=== PATIENT | male | born 1950 | race Caucasian/White ===

== ENCOUNTER 2016-08-24 10:24 | Outpatient (CLI) | payer MEDICARE, OTHER | END 2016-08-24 10:25 | disposition home or self-care (01) | DX: R55 Syncope and collapse (principal) ==

== ENCOUNTER 2017-08-10 11:09 | Outpatient (CLI) | payer MEDICARE, OTHER | END 2017-08-10 11:10 | disposition home or self-care (01) | LOC: LAB.F 11:09 | PROVIDERS: ATTEND Internal Medicine Cardiovascular Disease | DX: I48.0 Paroxysmal atrial fibrillation (principal) | CPT/HCPCS: 85610 ==

== ENCOUNTER 2017-08-15 09:24 | Outpatient (CLI) | payer MEDICARE, OTHER | END 2017-08-15 09:25 | disposition home or self-care (01) | LOC: LAB.F 09:24 | PROVIDERS: ATTEND Internal Medicine Cardiovascular Disease | DX: I48.0 Paroxysmal atrial fibrillation (principal) | CPT/HCPCS: 85610 ==

== ENCOUNTER 2017-08-21 10:19 | Outpatient (CLI) | payer MEDICARE, OTHER | END 2017-08-21 10:20 | disposition home or self-care (01) | LOC: LAB.F 10:19 | PROVIDERS: ATTEND Internal Medicine Cardiovascular Disease | DX: I48.0 Paroxysmal atrial fibrillation (principal) | CPT/HCPCS: 85610 ==

== ENCOUNTER 2017-08-27 09:17 | Outpatient (CLI) | payer MEDICARE, OTHER | END 2017-08-27 09:18 | disposition home or self-care (01) | LOC: LAB.F 09:17 | PROVIDERS: ATTEND Internal Medicine Cardiovascular Disease | DX: I48.0 Paroxysmal atrial fibrillation (principal) | CPT/HCPCS: 85610 ==

== ENCOUNTER 2017-09-03 09:19 | Outpatient (CLI) | payer MEDICARE, OTHER | END 2017-09-03 09:20 | disposition home or self-care (01) | LOC: LAB.F 09:19 | PROVIDERS: ATTEND Internal Medicine Cardiovascular Disease | DX: I48.0 Paroxysmal atrial fibrillation (principal) | CPT/HCPCS: 85610 ==

== ENCOUNTER 2017-09-17 09:36 | Outpatient (CLI) | payer MEDICARE, OTHER | END 2017-09-17 09:37 | disposition home or self-care (01) | LOC: LAB.F 09:36 | PROVIDERS: ATTEND Internal Medicine Cardiovascular Disease | DX: I48.0 Paroxysmal atrial fibrillation (principal) | CPT/HCPCS: 85610 ==

== ENCOUNTER 2017-10-01 09:09 | Outpatient (CLI) | payer MEDICARE, OTHER | END 2017-10-01 09:10 | disposition home or self-care (01) | LOC: LAB.F 09:09 | PROVIDERS: ATTEND Internal Medicine Cardiovascular Disease | DX: I48.0 Paroxysmal atrial fibrillation (principal) | CPT/HCPCS: 85610 ==

== ENCOUNTER 2017-10-15 09:15 | Outpatient (CLI) | payer MEDICARE, OTHER | END 2017-10-15 09:16 | disposition home or self-care (01) | LOC: LAB.F 09:15 | PROVIDERS: ATTEND Internal Medicine Cardiovascular Disease | DX: I48.0 Paroxysmal atrial fibrillation (principal) | CPT/HCPCS: 85610 ==

== ENCOUNTER 2017-11-12 10:18 | Outpatient (CLI) | payer MEDICARE, OTHER | END 2017-11-12 10:19 | disposition home or self-care (01) | LOC: LAB.F 10:18 | PROVIDERS: ATTEND Internal Medicine Cardiovascular Disease | DX: I48.0 Paroxysmal atrial fibrillation (principal) | CPT/HCPCS: 85610 ==

== ENCOUNTER 2017-11-19 09:13 | Outpatient (CLI) | payer MEDICARE, OTHER | END 2017-11-19 09:14 | disposition home or self-care (01) | LOC: LAB.F 09:13 | PROVIDERS: ATTEND Internal Medicine Cardiovascular Disease | DX: I48.0 Paroxysmal atrial fibrillation (principal) | CPT/HCPCS: 85610 ==

== ENCOUNTER 2017-12-10 09:55 | Outpatient (CLI) | payer MEDICARE, OTHER | END 2017-12-10 09:56 | disposition home or self-care (01) | LOC: LAB.F 09:55 | PROVIDERS: ATTEND Internal Medicine Cardiovascular Disease | DX: I48.0 Paroxysmal atrial fibrillation (principal) | CPT/HCPCS: 85610 ==

== ENCOUNTER 2018-01-08 12:50 | Outpatient (CLI) | payer MEDICARE, OTHER | END 2018-01-08 12:51 | disposition home or self-care (01) | LOC: LAB.F 12:50 | PROVIDERS: ATTEND Internal Medicine Cardiovascular Disease | DX: I48.0 Paroxysmal atrial fibrillation (principal) | CPT/HCPCS: 85610 ==

== ENCOUNTER 2018-01-30 11:03 | Outpatient (CLI) | payer MEDICARE, OTHER | END 2018-01-30 11:04 | disposition home or self-care (01) | LOC: LAB.F 11:03 | PROVIDERS: ATTEND Internal Medicine Cardiovascular Disease | DX: I48.0 Paroxysmal atrial fibrillation (principal) | CPT/HCPCS: 85610 ==

== ENCOUNTER 2018-02-19 08:37 | Outpatient (CLI) | payer MEDICARE, OTHER | END 2018-02-19 08:38 | disposition home or self-care (01) | LOC: LAB.F 08:37 | PROVIDERS: ATTEND Internal Medicine Cardiovascular Disease | DX: I48.0 Paroxysmal atrial fibrillation (principal) | CPT/HCPCS: 85610 ==

== ENCOUNTER 2018-03-09 01:56 | Outpatient (CLI) | payer MEDICARE, OTHER | END 2018-03-09 01:57 | disposition critical access hospital (66) | LOC: EMS 01:56 | PROVIDERS: ATTEND Surgery | DX: R46.4 Slowness and poor responsiveness (principal); R61 Generalized hyperhidrosis | CPT/HCPCS: A0425; A0427 ==

== ENCOUNTER 2018-03-09 02:28 | Emergency (ER) | payer MEDICARE, OTHER ==
[2018-03-09] MEDS ORDERED: SODIUM CHLORIDE 0.9% 1,000 ML IV ONE (02:30)
--- NOTE | 2018-03-09 02:47 | ED Physician Documentation ---
PD HPI ALTERED MENTAL STATUS - Stated complaint Stated Complaint: DEC LOC - Chief complaint Chief Complaint: Neuro - History obtained from History obtained from: Patient, EMS - History of Present Illness Timing - onset: Today Timing - duration: Hours (1) Quality / character: Less responsive Associated symptoms: Syncope (possible syncope). No: Fever, Headache, Stiff neck, Dyspnea, Cough, NVD, Urinary sx, General weakness, Focal weakness, Seizure activity Basline status: Alert and oriented X 3 Recently seen: Not recently seen - Additional information Additional information: patient has been drinking alcohol and using marijuana tonight. Family states became altered just before EMS arrived. Review of Systems Unable to obtain: Intoxicated Ten Systems: 10 systems reviewed and negative Constitutional: denies: Fever, Chills Nose: denies: Rhinorrhea / runny nose, Congestion Throat: denies: Sore throat Cardiac: denies: Chest pain / pressure Respiratory: denies: Cough GI: denies: Abdominal Pain, Nausea, Vomiting, Diarrhea Skin: denies: Rash Musculoskeletal: denies: Neck pain, Back pain Neurologic: denies: Focal weakness, Numbness, Headache PD PAST MEDICAL HISTORY - Past Medical History Past Medical History: Yes Cardiovascular: Hypertension, Atrial fibrillation - Past Surgical History Past Surgical History: Yes General: Cholecystectomy - Present Medications Home Medications: Ambulatory Orders Medication Instructions Recorded Confirmed Lisinopril 1 tab PO DAILY 03/09/18 03/09/18 Warfarin Sodium 03/09/18 Warfarin Sodium 03/09/18 amLODIPine [Norvasc] 1 tab PO DAILY 03/09/18 03/09/18 - Allergies Allergies/Adverse Reactions: Allergies Allergy/AdvReac Type Severity Reaction Status Date / Time No Known Drug Allergies Allergy Verified 03/09/18 02:40 - Living Situation Living Arrangement: reports: At home - Social History Does the pt drink ETOH?: Yes Does the pt have substance abuse?: Yes Substance Use and Type: Marijuana - Family History Family history: reports: Non contributory PD ED PE NORMAL - Vitals Vital signs reviewed: Yes - General General: No acute distress, Well developed/nourished, Other (Drowsy but arousable, oriented to person and place, not to time) - HEENT HEENT: Atraumatic, PERRL, Ears normal, Moist mucous membranes, Pharynx benign - Neck Neck: Supple, no meningeal sign - Cardiac Cardiac: RRR, Strong equal pulses - Respiratory Respiratory: No respiratory distress, Clear bilaterally - Abdomen Abdomen: Soft, Non tender, Non distended - Back Back: No spinal TTP - Derm Derm: Warm and dry - Extremities Extremities: No deformity, No tenderness to palpate, No edema, No calf tenderness / cord - Neuro Neuro: concrete pourer 2-12 intact, No motor deficit, No sensory deficit Eye Opening: Spontaneous Motor: Obeys Commands Verbal: Confused GCS Score: 14 Results - Vitals Vitals: Vital Signs - 24 hr 03/09/18 03/09/18 03/09/18 02:34 03:17 03:42 Temperature 36.0 C L Heart Rate 73 73 67 Respiratory 18 18 15 Rate Blood Pressure 115/71 144/89 H 113/72 O2 Saturation 96 98 94 03/09/18 03/09/18 04:36 05:28 Temperature Heart Rate 75 68 Respiratory 19 15 Rate Blood Pressure 118/75 127/80 O2 Saturation 95 96 Oxygen O2 Source Room air - EKG (time done) 0310 Rate: Rate (enter#) (75) Rhythm: NSR Ruby: Normal Intervals: Normal VA QRS: Normal Ischemia: Normal ST segments - Labs Labs: Laboratory Tests 03/09/18 03/09/18 03/09/18 02:48 02:48 02:48 WBC 11.6 H RBC 4.72 Hgb 14.7 Hct 42.5 MCV 90.1 MCH 31.0 MCHC 34.5 RDW 13.1 Plt Count 236 MPV 6.8 L Neut # (Auto) 9.9 H Lymph # (Auto) 1.1 L Cooke # (Auto) 0.5 Eos # (Auto) 0.0 Baso # (Auto) 0.0 Absolute Nucleated RBC 0.00 Nucleated RBC % 0.0 PT 22.0 H INR 2.0 H Sodium 136 Potassium 3.4 L Chloride 105 Carbon Dioxide 19 L Anion Gap 12.0 BUN 15 Creatinine 1.1 Estimated GFR (MDRD) 67 L Glucose 162 H Calcium 8.3 L Total Bilirubin 0.3 AST 30 ALT 30 Alkaline Phosphatase 69 Total Protein 7.3 Albumin 4.2 Globulin 3.1 Albumin/Globulin Ratio 1.4 Lipase 39 Salicylates < 6.0 Acetaminophen < 10 L Ethyl Alcohol 271.7 - Rads (name of study) Head CT Radiology: Prelim report reviewed, EMP read contemporaneously, See rad report (No acute intracranial abnormality) PD MEDICAL DECISION MAKING - ED course Complexity details: reviewed results, re-evaluated patient, considered differential, d/w patient ED course: Patient is a 67-year-old male who presents to the emergency department with altered mental status tonight. Appears to be secondary to alcohol intoxication as well as marijuana use. No acute findings on laboratory testing or head CT. No evidence of meningitis. No fevers. No evidence of encephalitis. Patient will be allowed to sober in the emergency department. He will be signed out to the oncoming emergency department physician. This document was made in part using voice recognition software. While efforts are made to proofread this document, sound alike and grammatical errors may occur. - Sepsis Event Vital Signs: Vital Signs - 24 hr 03/09/18 03/09/18 03/09/18 02:34 03:17 03:42 Temperature 36.0 C L Heart Rate 73 73 67 Respiratory 18 18 15 Rate Blood Pressure 115/71 144/89 H 113/72 O2 Saturation 96 98 94 03/09/18 03/09/18 04:36 05:28 Temperature Heart Rate 75 68 Respiratory 19 15 Rate Blood Pressure 118/75 127/80 O2 Saturation 95 96 Oxygen O2 Source Room air Departure - Departure Clinical Impression: Marijuana abuse Alcohol intoxication Qualifiers: Complication of substance-induced condition: uncomplicated Qualified Code(s): F10.920 - Alcohol use, unspecified with intoxication, uncomplicated Altered mental status Qualifiers: Altered mental status type: transient alteration of awareness Qualified Code(s): R40.4 - Transient alteration of awareness Condition: Stable
[2018-03-09 02:59] LABS: BASOPHILS % (AUTO) 0.4 %; EOSINOPHILS % (AUTO) 0.3 %; HGB - HEMOGLOBIN 14.7 g/dL (14.0-18.0); LYMPHOCYTES # (AUTO) 1.1 10^3/uL (1.5-3.5); LYMPHOCYTES % (AUTO) 9.6 %; MEAN CORPUSCULAR HGB CONC 34.5 g/dL (32.0-36.0); MEAN CORPUSCULAR VOLUME 90.1 fL (80.0-94.0); MEAN PLATELET VOLUME 6.8 fL (7.4-11.4); MONOCYTES # (AUTO) 0.5 10^3/uL (0.0-1.0); MONOCYTES % (AUTO) 4.1 %; NEUTROPHILS # (AUTO) 9.9 10^3/uL (1.5-6.6); NEUTROPHILS % (AUTO) 85.6 %; PLT - PLATELET COUNT 236 10^3/uL (130-450); RED BLOOD COUNT 4.72 10^6/uL (4.70-6.10); RED CELL DISTRIBUTION WIDTH 13.1 % (12.0-15.0); WHITE BLOOD COUNT 11.6 x10^3/uL (4.8-10.8)
[2018-03-09 03:13] LABS: ALBUMIN 4.2 g/dL (3.2-5.5); ALBUMIN/GLOBULIN RATIO 1.4 (1.0-2.2); ALKALINE PHOSPHATASE 69 IU/L (42-121); ALT ALANINE AMINOTRANSFERASE 30 IU/L (10-60); AST ASPARTATE AMINOTRANSFERASE 30 IU/L (10-42); BILIRUBIN,TOTAL 0.3 mg/dL (0.2-1.0); BUN - BLOOD UREA NITROGEN 15 mg/dL (6-20); CALCIUM 8.3 mg/dL (8.5-10.3); CARBON DIOXIDE - CO2 19 mmol/L (21-32); CHLORIDE 105 mmol/L (101-111); CREATININE 1.1 mg/dL (0.6-1.2); GFR - MDRD 67 (>89); GLUCOSE 162 mg/dL (70-100); LIPASE 39 U/L (22-51); SALICYLATE < 6.0 mg/dL; SODIUM 136 mmol/L (135-145); TOTAL PROTEIN 7.3 g/dL (6.7-8.2)
[2018-03-09 03:28] LABS: ACETAMINOPHEN < 10 ug/mL (10-30)
--- NOTE | 2018-03-09 04:18 | CT Report ---
Reason: ALOC Procedure Date: 03/09/2018 Accession Number: [id number] / [id number] Procedure: CT - Head W/O CPT Code: FULL RESULT: EXAM: CT HEAD EXAM DATE: 03/09/2018 04:05 AM. CLINICAL HISTORY: Syncope. COMPARISON: None. TECHNIQUE: Multiaxial CT images were obtained from the foramen magnum to the vertex. Reformats: Coronal. IV contrast: None. In accordance with CT protocol optimization, one or more of the following dose reduction techniques were utilized for this exam: automated exposure control, adjustment of mA and/or KV based on patient size, or use of iterative reconstructive technique. FINDINGS: Parenchyma: No intraparenchymal hemorrhage. No evidence of mass, midline shift, or CT findings of acute infarction. Christine-white differentiation is distinct. Mild diffuse chronic microangiopathic white matter changes are evident. Extraaxial Spaces: Normal for age. No subdural or epidural collections identified. Ventricles: The ventricles and cortical sulci are mildly enlarged, consistent with age-related tissue loss. Sinuses and orbits: Bubbly secretions are noted in the right sphenoid sinus. The orbits and mastoid sinuses are unremarkable. Bones: No evidence of fracture or calvarial defect. Other: Mild intracranial atherosclerosis is noted. IMPRESSION: 1. No acute intracranial process. 2. Suggestion of bubbly secretions in the right sphenoid sinus. Clinical correlation for acute sinusitis is recommended. RADIA
[2018-03-09 10:35] LABS: MUDS CUTOFF CONCENTRATIONS CUTOFF CONC BELOW:
[2018-03-09 10:36] LABS: BILIRUBIN,URINE NEGATIVE (NEGATIVE); GLUCOSE, URINE (UA) NEGATIVE (NEGATIVE); KETONES,URINE (UA) NEGATIVE (NEGATIVE); LEUKOCYTE ESTERASE, URINE NEGATIVE (NEGATIVE); NITRITE,URINE NEGATIVE (NEGATIVE); OCCULT BLOOD,URINE TRACE-LYSE (NEGATIVE); PH,URINE 5.5 PH (5.0-7.5); PROTEIN,URINE NEGATIVE (NEGATIVE); UROBILINOGEN,URINE 0.2 (NORMAL) E.U./dL (NORMAL)
[2018-03-09 10:38] LABS: CLARITY,URINE CLEAR (CLEAR)
[2018-03-09 10:48] LABS: AMPHETAMINE SCREEN,URINE NEGATIVE (NEGATIVE); BENZODIAZEPINES SCREEN, URINE NEGATIVE (NEGATIVE); COCAINE SCREEN URINE NEGATIVE (NEGATIVE); METHADONE SCREEN, URINE NEGATIVE (NEGATIVE); METHAMPHETAMINES SCREEN, URINE NEGATIVE (NEGATIVE); OPIATE SCREEN, URINE NEGATIVE (NEGATIVE); OXYCODONE SCREEN, URINE NEGATIVE (NEGATIVE); PROPOXYPHENE SCREEN, URINE NEGATIVE (NEGATIVE); TRICYCLIC ANTIDEPRESSANT,URINE NEGATIVE (NEGATIVE)
[2018-03-09 13:08] VITALS: BP 134/71
== END 2018-03-09 12:45 | disposition home or self-care (01) ==
LOC: EDUNIT# → EDBD → ED 02:28
DX: F12.10 Cannabis abuse, uncomplicated (principal); F10.920 Alcohol use, unspecified with intoxication, uncomplicated; R40.4 Transient alteration of awareness; I10 Essential (primary) hypertension; I48.91 Unspecified atrial fibrillation; Z79.01 Long term (current) use of anticoagulants
CPT/HCPCS: 36415; 70450; 80053; 80306; 80307; 80320; 80329; 81001; 81003; 83690; 85025; 85610; 87086; 93005; 96360; 99284; 99285

== ENCOUNTER 2018-03-25 12:41 | Outpatient (CLI) | payer MEDICARE, OTHER | END 2018-03-25 12:42 | disposition home or self-care (01) | LOC: LAB.F 12:41 | PROVIDERS: ATTEND Internal Medicine Cardiovascular Disease | DX: I48.0 Paroxysmal atrial fibrillation (principal) | CPT/HCPCS: 85610 ==

== ENCOUNTER 2018-04-23 08:55 | Outpatient (CLI) | payer MEDICARE, OTHER ==
[2018-04-23 10:56] LABS: INR 2.4 (0.8-1.2)
== END 2018-04-23 08:56 | disposition home or self-care (01) ==
LOC: LAB.F 08:55
PROVIDERS: ATTEND Internal Medicine Cardiovascular Disease
DX: I48.0 Paroxysmal atrial fibrillation (principal)
CPT/HCPCS: 36415; 85610

== ENCOUNTER 2018-05-21 09:17 | Outpatient (CLI) | payer MEDICARE, OTHER | END 2018-05-21 09:18 | disposition home or self-care (01) | LOC: LAB.F 09:17 | PROVIDERS: ATTEND Internal Medicine Cardiovascular Disease | DX: I48.0 Paroxysmal atrial fibrillation (principal) | CPT/HCPCS: 85610 ==

== ENCOUNTER 2018-06-18 09:19 | Outpatient (CLI) | payer MEDICARE, OTHER | END 2018-06-18 09:20 | disposition home or self-care (01) | LOC: LAB.F 09:19 | PROVIDERS: ATTEND Internal Medicine Cardiovascular Disease | DX: I48.0 Paroxysmal atrial fibrillation (principal) | CPT/HCPCS: 85610 ==

== ENCOUNTER 2018-07-09 09:15 | Outpatient (CLI) | payer MEDICARE, OTHER | END 2018-07-09 09:16 | disposition home or self-care (01) | LOC: LAB.F 09:15 | PROVIDERS: ATTEND Internal Medicine Cardiovascular Disease | DX: I48.0 Paroxysmal atrial fibrillation (principal) | CPT/HCPCS: 85610 ==

== ENCOUNTER 2018-08-09 12:51 | Outpatient (CLI) | payer MEDICARE, OTHER | END 2018-08-09 12:52 | disposition home or self-care (01) | LOC: LAB.F 12:51 | PROVIDERS: ATTEND Internal Medicine Cardiovascular Disease | DX: I48.0 Paroxysmal atrial fibrillation (principal) | CPT/HCPCS: 85610 ==

== ENCOUNTER 2018-09-05 08:31 | Outpatient (CLI) | payer MEDICARE, OTHER | END 2018-09-05 08:32 | disposition home or self-care (01) | LOC: LAB.F 08:31 | PROVIDERS: ATTEND Internal Medicine Cardiovascular Disease | DX: I48.0 Paroxysmal atrial fibrillation (principal) | CPT/HCPCS: 85610 ==

== ENCOUNTER 2018-09-20 08:00 | Outpatient (CLI) | payer MEDICARE, OTHER | END 2018-09-20 23:59 | disposition home or self-care (01) | LOC: LAB.F 08:00 | PROVIDERS: ATTEND Internal Medicine Cardiovascular Disease | DX: I48.0 Paroxysmal atrial fibrillation (principal) | CPT/HCPCS: 85610 ==

== ENCOUNTER 2018-10-16 09:54 | Outpatient (CLI) | payer MEDICARE, OTHER | END 2018-10-16 09:55 | disposition home or self-care (01) | LOC: LAB.F 09:54 | PROVIDERS: ATTEND Internal Medicine Cardiovascular Disease | DX: I48.0 Paroxysmal atrial fibrillation (principal) | CPT/HCPCS: 85610 ==

== ENCOUNTER 2018-11-12 10:33 | Outpatient (CLI) | payer MEDICARE, OTHER | END 2018-11-12 10:34 | disposition home or self-care (01) | LOC: LAB.F 10:33 | PROVIDERS: ATTEND Internal Medicine Cardiovascular Disease | DX: I48.0 Paroxysmal atrial fibrillation (principal) | CPT/HCPCS: 85610 ==

== ENCOUNTER 2018-11-26 09:51 | Outpatient (CLI) | payer MEDICARE, OTHER | END 2018-11-26 09:52 | disposition home or self-care (01) | LOC: LAB.F 09:51 | PROVIDERS: ATTEND Internal Medicine Cardiovascular Disease | DX: I48.0 Paroxysmal atrial fibrillation (principal) | CPT/HCPCS: 85610 ==

== ENCOUNTER 2019-01-14 09:21 | Outpatient (CLI) | payer MEDICARE, OTHER | END 2019-01-14 09:22 | disposition home or self-care (01) | LOC: LAB.S 09:21 | PROVIDERS: ATTEND Internal Medicine Cardiovascular Disease | DX: I48.0 Paroxysmal atrial fibrillation (principal) | CPT/HCPCS: 85610 ==

== ENCOUNTER 2019-02-17 09:48 | Outpatient (CLI) | payer MEDICARE, OTHER | END 2019-02-17 09:49 | disposition home or self-care (01) | LOC: LAB.S 09:48 | PROVIDERS: ATTEND Internal Medicine Cardiovascular Disease | DX: I48.0 Paroxysmal atrial fibrillation (principal) | CPT/HCPCS: 85610 ==

== ENCOUNTER 2019-03-05 10:19 | Outpatient (CLI) | payer MEDICARE, OTHER | END 2019-03-05 10:20 | disposition home or self-care (01) | LOC: LAB.S 10:19 | PROVIDERS: ATTEND Internal Medicine Cardiovascular Disease | DX: I48.0 Paroxysmal atrial fibrillation (principal) | CPT/HCPCS: 85610 ==

== ENCOUNTER 2019-03-26 09:50 | Outpatient (CLI) | payer MEDICARE, OTHER | END 2019-03-26 09:51 | disposition home or self-care (01) | LOC: LAB.S 09:50 | PROVIDERS: ATTEND Internal Medicine Cardiovascular Disease | DX: I48.0 Paroxysmal atrial fibrillation (principal); H90.3 Sensorineural hearing loss, bilateral | CPT/HCPCS: 36415; 82565; 85610 ==

== ENCOUNTER 2019-04-10 13:03 | Outpatient (CLI) | payer MEDICARE, OTHER | END 2019-04-10 13:04 | disposition home or self-care (01) | LOC: LAB.S 13:03 | PROVIDERS: ATTEND Internal Medicine Cardiovascular Disease | DX: I48.0 Paroxysmal atrial fibrillation (principal) | CPT/HCPCS: 85610 ==

== ENCOUNTER 2019-05-30 09:55 | Outpatient (CLI) | payer MEDICARE, OTHER | END 2019-05-30 09:56 | disposition home or self-care (01) | LOC: LAB.S 09:55 | PROVIDERS: ATTEND Internal Medicine Cardiovascular Disease | DX: I48.0 Paroxysmal atrial fibrillation (principal) | CPT/HCPCS: 85610 ==

== ENCOUNTER 2019-06-27 10:37 | Outpatient (CLI) | payer MEDICARE, OTHER | END 2019-06-27 10:38 | disposition home or self-care (01) | LOC: LAB.S 10:37 | PROVIDERS: ATTEND Internal Medicine Cardiovascular Disease | DX: I48.0 Paroxysmal atrial fibrillation (principal) | CPT/HCPCS: 85610 ==

== ENCOUNTER 2019-07-25 13:33 | Outpatient (CLI) | payer MEDICARE, OTHER | END 2019-07-25 13:34 | disposition home or self-care (01) | LOC: LAB.S 13:33 | PROVIDERS: ATTEND Internal Medicine Cardiovascular Disease | DX: I48.0 Paroxysmal atrial fibrillation (principal) | CPT/HCPCS: 85610 ==

== ENCOUNTER 2019-08-08 09:49 | Outpatient (CLI) | payer MEDICARE, OTHER | END 2019-08-08 09:50 | disposition home or self-care (01) | LOC: LAB.S 09:49 | PROVIDERS: ATTEND Internal Medicine Cardiovascular Disease | DX: I48.0 Paroxysmal atrial fibrillation (principal) | CPT/HCPCS: 85610 ==

== ENCOUNTER 2019-08-22 11:50 | Outpatient (CLI) | payer MEDICARE, OTHER | END 2019-08-22 11:51 | disposition home or self-care (01) | LOC: LAB.S 11:50 | PROVIDERS: ATTEND Internal Medicine Cardiovascular Disease | DX: I48.0 Paroxysmal atrial fibrillation (principal) | CPT/HCPCS: 85610 ==

== ENCOUNTER 2019-12-19 17:46 | Outpatient (CLI) | payer MEDICARE, OTHER | END 2019-12-19 17:47 | disposition home or self-care (01) | LOC: LAB.S 17:46 | PROVIDERS: ATTEND Internal Medicine Cardiovascular Disease | DX: I48.0 Paroxysmal atrial fibrillation (principal) | CPT/HCPCS: 85610 ==

== ENCOUNTER 2020-02-26 15:03 | Outpatient (CLI) | payer MEDICARE, OTHER | END 2020-02-26 15:04 | disposition home or self-care (01) | LOC: LAB 15:03 | PROVIDERS: ATTEND Internal Medicine Cardiovascular Disease | DX: I48.0 Paroxysmal atrial fibrillation (principal) | CPT/HCPCS: 85610 ==

== ENCOUNTER 2020-03-29 17:22 | Outpatient (CLI) | payer MEDICARE, OTHER | END 2020-03-29 17:23 | disposition home or self-care (01) | LOC: LAB.S 17:22 | PROVIDERS: ATTEND Internal Medicine Cardiovascular Disease | DX: I48.0 Paroxysmal atrial fibrillation (principal) | CPT/HCPCS: 85610 ==

== ENCOUNTER 2020-04-26 15:20 | Outpatient (CLI) | payer MEDICARE, OTHER | END 2020-04-26 15:21 | disposition home or self-care (01) | LOC: LAB.S 15:20 | PROVIDERS: ATTEND Internal Medicine Cardiovascular Disease | DX: I48.0 Paroxysmal atrial fibrillation (principal) | CPT/HCPCS: 85610 ==

== ENCOUNTER 2020-05-26 10:37 | Outpatient (CLI) | payer MEDICARE, OTHER | END 2020-05-26 10:38 | disposition home or self-care (01) | LOC: LAB.S 10:37 | PROVIDERS: ATTEND Internal Medicine Cardiovascular Disease | DX: I48.0 Paroxysmal atrial fibrillation (principal) | CPT/HCPCS: 85610 ==

== ENCOUNTER 2020-06-28 10:49 | Outpatient (CLI) | payer MEDICARE ==
[2020-06-28 15:35] LABS: BASOPHILS % (AUTO) 0.5 %; EOSINOPHILS # (AUTO) 0.2 10^3/uL (0.0-0.7); EOSINOPHILS % (AUTO) 2.6 %; HGB - HEMOGLOBIN 15.6 g/dL (14.0-18.0); LYMPHOCYTES # (AUTO) 2.7 10^3/uL (1.5-3.5); LYMPHOCYTES % (AUTO) 36.6 %; MEAN CORPUSCULAR HEMOGLOBIN 30.3 pg (27.0-31.0); MEAN CORPUSCULAR HGB CONC 32.8 g/dL (32.0-36.0); MEAN CORPUSCULAR VOLUME 92.2 fL (80.0-94.0); MEAN PLATELET VOLUME 10.3 fL (7.4-11.4); MONOCYTES # (AUTO) 0.6 10^3/uL (0.0-1.0); MONOCYTES % (AUTO) 7.5 %; NEUTROPHILS # (AUTO) 3.8 10^3/uL (1.5-6.6); NEUTROPHILS % (AUTO) 52.3 %; PLT - PLATELET COUNT 239 10^3/uL (130-450); RED BLOOD COUNT 5.15 10^6/uL (4.70-6.10); WHITE BLOOD COUNT 7.3 x10^3/uL (4.8-10.8)
[2020-06-28 16:27] LABS: ALBUMIN 4.3 g/dL (3.2-5.5); ALBUMIN/GLOBULIN RATIO 1.5 (1.0-2.2); ALKALINE PHOSPHATASE 62 IU/L (42-121); ALT ALANINE AMINOTRANSFERASE 41 IU/L (10-60); AST ASPARTATE AMINOTRANSFERASE 30 IU/L (10-42); BILIRUBIN,TOTAL 0.6 mg/dL (0.2-1.0); BUN - BLOOD UREA NITROGEN 12 mg/dL (6-20); CALCIUM 9.8 mg/dL (8.5-10.3); CARBON DIOXIDE - CO2 25 mmol/L (21-32); CHLORIDE 100 mmol/L (101-111); CHOL/HDL RATIO 10.9 (<5.0); CHOLESTEROL 317 mg/dL; GLUCOSE 165 mg/dL (70-100); HDL CHOLESTEROL 29 mg/dL; SODIUM 136 mmol/L (135-145); TOTAL PROTEIN 7.2 g/dL (6.7-8.2)
[2020-06-28 16:47] LABS: LDL CHOLESTEROL,DIRECT 63 mg/dL; LDLD/HDL RATIO 2.2 (<3.6)
== END 2020-06-28 10:50 | disposition home or self-care (01) ==
LOC: LAB.S 10:49
PROVIDERS: ATTEND Internal Medicine
DX: I48.0 Paroxysmal atrial fibrillation (principal); I10 Essential (primary) hypertension; Z12.5 Encounter for screening for malignant neoplasm of prostate
CPT/HCPCS: 36415; 80053; 80061; 83721; 85025; 85610; G0103; 84153

== ENCOUNTER 2020-07-27 12:42 | Outpatient (CLI) | payer MEDICARE, OTHER ==
[2020-07-27 14:45] VITALS: BP 136/95
--- NOTE | 2020-07-27 14:45 | SLEEP CARE CONSULTATION ---
Information from patient questionnaire entered by Vera Nair. I have reviewed and concur with the information entered by Vera Nair. This document represents the service I personally performed and the decisions made by me, Parul Roque ARNP. History of Present Illness Service Date and Time: 07/27/2020 1242 Reason for Visit: New patient, Previously diagnosed sleep apnea (But not been on CPAP ) Chief Complaint: reports: Snoring, Observed pauses in breathing Date of Onset: 15 years Usual bedtime: 10 PM Time it takes to fall asleep: < 30 minutes Snores at night: Yes Observed to quit breathing while asleep: Yes Sleeps alone due to snoring: Yes Number of times waking at night: 1-2 Reasons for waking at night: reports: Choking, Snoring, Bathroom Toss, Turn, or Twitch while sleeping: Yes Recalls having dreams: Yes Usually gets out of bed at: 9 AM Feels refreshed in the morning: Yes Morning headache: No Sleepy or fatigued during the day: Yes Ever fallen asleep while driving: No Takes day naps: Yes (3-4 times a week, 1-2 hours at the most) Dreams during day naps: No Prior sleep studies: Yes Year and Where: 1993 [facility], [place] [facility] information: I had the pleasure of seeing SHEELA VASQUEZ today regarding the possibility of him having a sleep disorder. He has been previously diagnosed with ASHELY but has not been on CPAP therapy. He tried the CPAP for 6 months to 2 years but was unable to tolerate because the pressure setting was too high. He did a titration study which did feel better but for some reason it was not changed to same pressure on his machine at home. He stopped using it sometime between [id number]. He comes back today because his doctor sent him for evaluation. He has used lots of modalities to reduce his snoring without any improvement. - Parasomnia Symptoms Ever been unable to move upon waking from sleep: No Walks in sleep: Yes (in the past) Talks in sleep: No (not sure) Ever acted out dreams in sleep: No Ever felt weak in the knees when startled or emotional: No Bothered by creepy, crawly, restless sensations in legs: Yes (mostly at night) Problems with memory or concentration: Yes (mostly concentration, occasional memory issues) Subjective Initial [place] Sleepiness Scale score: 12 (in 2020) Past Medical History Past Medical History: reports: Hypertension, Arrythmia, Fibromyalgia, Anxiety, Depression, Other (AFIB) Social History 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 Patient is Single and lives in [place]. Have you smoked in the past 12 months: Yes Cigarettes per day (20/pack): 5 Alcohol use: Yes Alcohol amount and frequency: 4 oz 3 days/week Caffeine use: Yes Caffeine amount and frequency: almost 1 pot of coffee daily (32 oz) Family History Family history of sleep disordered breathing: Yes Allergies and Home Medications Drug allergies reviewed: Yes (NKDA) Home medication list reviewed: Yes Allergy and home medication list: Amlodipine Rosuvastatin Warfarin Sodium Bupirone HCL Metoprolol Baclofen Linsinopril Review of Systems Weight gain over past 5 years: +15 Cardiovascular: reports: high blood pressure, palpitations, irregular heart rate or pulse Respiratory: reports: sputum production, chronic cough Urinary: reports: frequency Neurological: reports: fainting or unconsciousness Psychiatric: reports: anxiety, depression Ear/Nose/Throat: reports: sinus problems, dry mouth/throat, tonsillectomy Endocrine: reports: increased urination Musculoskeletal: reports: joint pain, neck pain, back pain, muscle pain or cramping, mobility problems Immunologic: reports: sneezing (runny nose), allergies to food or environment Physical Exam Blood Pressure: 136/95 Cuff size: wrist Heart Rate: 83 O2 Saturation: 95 Height: 6 ft Weight: 257 lb Body Mass Index: 34.8 BMI Classification: Obese Heart: irregular rhythm Lungs: clear bilaterally Impression and Plan 1. Suspected Obstructive Sleep Apnea-Hypopnea Syndrome, as previously diagnosed and as suggested by a continuing history of loud and irregular snoring, observed cessation of breath while asleep, and cognitive impairment. He also has a history of hypertension, atrial fibrillation, anxiety and depression. I recommend proceeding to polysomnography to confirm the diagnosis and to assess severity. If the patient has significant sleep disordered breathing, a manual CPAP titration study will also be performed to find the optimal treatment pressure. I informed the patient of what the sleep studies involve and after some discussion, obtained agreement to proceed. The pathophysiology of obstructive sleep apnea-hypopnea syndrome was discussed with the patient and health risks of cardiovascular and cerebrovascular disease if not treated. Patient doesn't drive. Patient agreed to plan. * Schedule polysomnography +- manual CPAP titration study and return in 1-2 weeks after the study to discuss result and initiate therapy. * Avoid alcohol, sedative and muscle relaxant around bedtime. * Attempt to lose weight. * Review instructions provided by trained office staff on how to prepare for the sleep study. * Return for follow-up after sleep study completed. Counseling Topics: Weight loss health impact Visit Type: In Office Time Spent with Patient (minutes): 32 Provider Statement: I spent 100% of the Face to Face Visit with the patient with greater than 50% spent counseling the patient and coordination of care.
== END 2020-07-27 12:43 | disposition home or self-care (01) ==
LOC: SC 12:42
PROVIDERS: ATTEND Nurse Practitioner Family
DX: G47.33 Obstructive sleep apnea (adult) (pediatric) (principal); F17.210 Nicotine dependence, cigarettes, uncomplicated
CPT/HCPCS: 99203; G0463; 99212

== ENCOUNTER 2020-07-29 11:58 | Outpatient (CLI) | payer MEDICARE, OTHER | END 2020-07-29 11:59 | disposition home or self-care (01) | LOC: LAB.S 11:58 | PROVIDERS: ATTEND Internal Medicine Cardiovascular Disease | DX: I48.0 Paroxysmal atrial fibrillation (principal) | CPT/HCPCS: 85610 ==

== ENCOUNTER 2020-08-09 15:07 | Outpatient (CLI) | payer MEDICARE, OTHER | END 2020-08-09 15:08 | disposition home or self-care (01) | LOC: LAB.S 15:07 | PROVIDERS: ATTEND Internal Medicine Cardiovascular Disease | DX: I48.0 Paroxysmal atrial fibrillation (principal) | CPT/HCPCS: 85610 ==

== ENCOUNTER 2020-08-23 13:48 | Outpatient (CLI) | payer MEDICARE, OTHER | END 2020-08-23 13:49 | disposition home or self-care (01) | LOC: LAB.S 13:48 | PROVIDERS: ATTEND Internal Medicine Cardiovascular Disease | DX: I48.0 Paroxysmal atrial fibrillation (principal) | CPT/HCPCS: 85610 ==

== ENCOUNTER 2020-09-24 12:40 | Outpatient (CLI) | payer MEDICARE, OTHER | END 2020-09-24 12:41 | disposition home or self-care (01) | LOC: LAB.S 12:40 | PROVIDERS: ATTEND Internal Medicine Cardiovascular Disease | DX: I48.0 Paroxysmal atrial fibrillation (principal) | CPT/HCPCS: 85610 ==

== ENCOUNTER 2020-10-22 10:22 | Outpatient (CLI) | payer MEDICARE, OTHER | END 2020-10-22 10:23 | disposition home or self-care (01) | LOC: LAB.S 10:22 | PROVIDERS: ATTEND Internal Medicine Cardiovascular Disease | DX: I48.0 Paroxysmal atrial fibrillation (principal) | CPT/HCPCS: 36416; 85610 ==

== ENCOUNTER 2020-11-23 14:51 | Outpatient (CLI) | payer MEDICARE, OTHER | END 2020-11-23 14:52 | disposition home or self-care (01) | LOC: LAB.S 14:51 | PROVIDERS: ATTEND Internal Medicine Cardiovascular Disease | DX: I48.0 Paroxysmal atrial fibrillation (principal) | CPT/HCPCS: 36416; 85610 ==

== ENCOUNTER 2020-12-01 20:30 | Outpatient (CLI) | payer MEDICARE, OTHER | END 2020-12-01 20:31 | disposition home or self-care (01) | LOC: SC 20:30 | PROVIDERS: ATTEND Nurse Practitioner Family | DX: G47.33 Obstructive sleep apnea (adult) (pediatric) (principal); G47.61 Periodic limb movement disorder; E66.9 Obesity, unspecified; Z68.34 Body mass index [BMI] 34.0-34.9, adult | CPT/HCPCS: 95810 ==

== ENCOUNTER 2020-12-15 16:36 | Outpatient (CLI) | payer MEDICARE, OTHER ==
--- NOTE | 2020-12-15 16:53 | SLEEP CARE CONSULTATION ---
Information from patient questionnaire entered by Vera Nair. I have reviewed and concur with the information entered by Vera Nair. This document represents the service I personally performed and the decisions made by me, Parul Roque ARNP. History of Present Illness Service Date and Time: 12/15/2020 1640 Initial [place] Sleepiness Scale score: 12 (in 2020) Current [place] Sleepiness Scale score: 5 Additional HPI information: SHEELA VASQUEZ returns for follow up and results of the recently performed polysomnography. I explained the pathophysiology behind obstructive sleep apnea. We then spent quite a bit of time discussing different treatment options. For mild obstructive sleep apnea, surgery and oral appliance are alternatives to nasal CPAP therapy but in moderate or severe cases, nasal CPAP is the most effective a nd reliable treatment. Because apnea is primarily in supine position, then positional management therapy could be effective. Methods discussed such as positioning with pillows, using a T-shirt with tennis balls in the back, and shown commercial products that have a pillow format on back to prevent supine sleep. I reviewed the impact of weight changes on sleep apnea and strongly recommended losing weight. After some discussion, the patient opted to go with the nasal CPAP therapy. Nasal autoCPAP set at 4-15 cmH20 will be ordered with rationale explained. A manual titration study will be ordered if unable to find optimal pressure with office adjustments. I explained how CPAP machine works and what to expect when using the machine. Using CPAP every night in order to get used to it was emphasized. Patient advised to put CPAP mask on before getting into bed so as not to fall asleep without CPAP. To assist acclimation to CPAP use, it could also be used for a short time during day while reading or watching TV. The patient was instructed to call the CPAP supplier to discuss any mechanical problem that may occur. If the mask given is uncomfortable or is difficult to keep on through the night even with adjustment, contact the CPAP supplier as many will replace with another mask style if notified before 30 days. If snoring or perceives is not getting enough air or too much air from the machine, notify this office. Patient was cautioned about risks of drowsy driving until sleepiness symptoms resolve. Sleep Study - Results Type of Sleep Study: Polysomnography Prior sleep studies: Yes Year and Where: 1993 [facility], [place] Polysomnography/Home Sleep Study results: IMPRESSION: The quality of the study is good. The patient had normal sleep efficiency. The sleep architecture was abnormal for sleep fragmentation and reduced amount of time spent in slow wave sleep (N3). Respiratory monitoring showed very severe obstructive sleep apnea-hypopnea (AHI = 70.9) associated with frequent arousals, oxyhemoglobin desaturation and moderate hypoxia (drake oxygen saturation of 79 %). The respiratory events occurred independently of sleep stage and body position (supine AHI = 78.7; non- supine = 53.53). Snore was light to loud in intensity. There was severe periodic leg movement of sleep not contributing to the sleep fragmentation. Cardiac rhythm was normal sinus rhythm without significant arrhythmia. No abnormal behavior (parasomnia) observed during the night. Allergies and Home Medications Home medication list reviewed: Yes (no new meds) Review of Systems Review of systems same as previous: Yes (no changes) Physical Exam Vital signs obtained and entered by: Telehealth visit to reduce exposure during Covid pandemic Height: 6 ft Impression and Plan 1. Obstructive Sleep Apnea-Hypopnea Syndrome, very severe, with lowest oxygen saturation of 79%. Obviously this is the cause of the patients symptoms of unrefreshed sleep, and excessive daytime sleepiness. Positive pressure therapy could benefit hypertension, heart arrhythmia, anxiety and depression. As mentioned above, the patient will be started on nasal autoCPAP therapy with pressure set at 4-15 cmH2O. A manual titration study will be completed if unable to find optimal treatment pressure with office adjustments. Compliance guidelines also reviewed. A copy of compliance guidelines will be given for reference at check out. Because the apnea is more severe supine, I instructed to avoid sleeping supine using pillow positioning until able to start CPAP use. * Nasal auto CPAP therapy, pressure at 4-15 cm H2O. * Attempt to lose weight. * Avoid alcohol consumption near bedtime. * Avoid supine sleep until using CPAP. * The patient is again cautioned about driving until sleepiness completely resolves. * Return one month after CPAP obtained. I will assess response to therapy and compliance at that time. Counseling Topics: Weight loss health impact Visit Type: Telehealth Video Video Type: VSee Patient Location: Home Location of Provider: Office Patient agrees and consents to this telehealth visit type: Yes Patient agrees to have their insurance billed: Yes Time Spent with Patient (minutes): 23 Provider Statement: I spent 100% of the Telehealth Video Call with the patient with greater than 50% spent counseling the patient and coordination of care.
== END 2020-12-15 16:37 | disposition home or self-care (01) ==
LOC: SC 16:36
PROVIDERS: ATTEND Nurse Practitioner Family
DX: G47.33 Obstructive sleep apnea (adult) (pediatric) (principal)

== ENCOUNTER 2020-12-31 13:12 | Outpatient (CLI) | payer MEDICARE, OTHER | END 2020-12-31 13:13 | disposition home or self-care (01) | LOC: LAB.S 13:12 | PROVIDERS: ATTEND Internal Medicine Cardiovascular Disease | DX: I48.0 Paroxysmal atrial fibrillation (principal) | CPT/HCPCS: 36416; 85610 ==

== ENCOUNTER 2021-01-27 12:13 | Outpatient (CLI) | payer MEDICARE, OTHER | END 2021-01-27 12:14 | disposition home or self-care (01) | LOC: LAB.S 12:13 | PROVIDERS: ATTEND Internal Medicine Cardiovascular Disease | DX: I48.0 Paroxysmal atrial fibrillation (principal) | CPT/HCPCS: 36416; 85610 ==

== ENCOUNTER 2021-02-23 09:13 | Outpatient (CLI) | payer MEDICARE, OTHER | END 2021-02-23 09:14 | disposition home or self-care (01) | LOC: LAB.S 09:13 | PROVIDERS: ATTEND Internal Medicine Cardiovascular Disease | DX: I48.0 Paroxysmal atrial fibrillation (principal) | CPT/HCPCS: 36416; 85610 ==

== ENCOUNTER 2021-03-24 11:56 | Outpatient (CLI) | payer MEDICARE, OTHER | END 2021-03-24 11:57 | disposition home or self-care (01) | LOC: LAB.S 11:56 | PROVIDERS: ATTEND Internal Medicine Cardiovascular Disease | DX: I48.0 Paroxysmal atrial fibrillation (principal) | CPT/HCPCS: 36416; 85610 ==

== ENCOUNTER 2021-03-24 12:44 | Outpatient (CLI) | payer MEDICARE, OTHER | END 2021-03-24 12:45 | disposition short-term general hospital (02) | LOC: EMS 12:44 | DX: R07.9 Chest pain, unspecified (principal) | CPT/HCPCS: A0425; A0427 ==

== ENCOUNTER 2021-04-04 09:38 | Outpatient (CLI) | payer MEDICARE, OTHER ==
[2021-04-04 15:05] LABS: BASOPHILS % (AUTO) 0.1 %; EOSINOPHILS # (AUTO) 0.2 10^3/uL (0.0-0.7); HCT - HEMATOCRIT 40.5 % (42.0-52.0); LYMPHOCYTES # (AUTO) 1.4 10^3/uL (1.5-3.5); LYMPHOCYTES % (AUTO) 14.2 %; MEAN CORPUSCULAR HEMOGLOBIN 30.7 pg (27.0-31.0); MEAN CORPUSCULAR HGB CONC 32.1 g/dL (32.0-36.0); MEAN CORPUSCULAR VOLUME 95.5 fL (80.0-94.0); MEAN PLATELET VOLUME 8.9 fL (7.4-11.4); MONOCYTES # (AUTO) 0.8 10^3/uL (0.0-1.0); MONOCYTES % (AUTO) 8.2 %; NEUTROPHILS # (AUTO) 7.3 10^3/uL (1.5-6.6); NEUTROPHILS % (AUTO) 74.9 %; PLT - PLATELET COUNT 379 10^3/uL (130-450); RED BLOOD COUNT 4.24 10^6/uL (4.70-6.10); RED CELL DISTRIBUTION WIDTH 12.6 % (12.0-15.0); WHITE BLOOD COUNT 9.7 x10^3/uL (4.8-10.8)
[2021-04-04 15:22] LABS: ALBUMIN 3.5 g/dL (3.2-5.5); ALBUMIN/GLOBULIN RATIO 0.9 (1.0-2.2); ALKALINE PHOSPHATASE 60 IU/L (42-121); ALT ALANINE AMINOTRANSFERASE 47 IU/L (10-60); AST ASPARTATE AMINOTRANSFERASE 29 IU/L (10-42); BILIRUBIN,TOTAL 0.4 mg/dL (0.2-1.0); BUN - BLOOD UREA NITROGEN 16 mg/dL (6-20); CALCIUM 9.7 mg/dL (8.5-10.3); CARBON DIOXIDE - CO2 29 mmol/L (21-32); CHLORIDE 98 mmol/L (101-111); CHOL/HDL RATIO 4.5 (<5.0); CHOLESTEROL 99 mg/dL; GFR - MDRD 74 (>89); GLUCOSE 130 mg/dL (70-100); HDL CHOLESTEROL 22 mg/dL; LDL CHOLESTEROL,CALCULATED 43 mg/dL; POTASSIUM 4.5 mmol/L (3.5-5.0); SODIUM 138 mmol/L (135-145); TOTAL PROTEIN 7.6 g/dL (6.7-8.2); TRIGLYCERIDES 169 mg/dL; VLDL CHOLESTEROL 34 mg/dL
== END 2021-04-04 09:39 | disposition home or self-care (01) ==
LOC: LAB.S 09:38
PROVIDERS: ATTEND Internal Medicine Cardiovascular Disease
DX: I48.0 Paroxysmal atrial fibrillation (principal); E78.1 Pure hyperglyceridemia; I10 Essential (primary) hypertension
CPT/HCPCS: 36415; 36416; 80053; 80061; 83721; 85025; 85610

== ENCOUNTER → 2021-04-06 | Outpatient (CLI) | payer MEDICARE, OTHER ==
[2021-04-06 18:13] LABS: BASOPHILS # (AUTO) 0.1 10^3/uL (0.0-0.1); BASOPHILS % (AUTO) 0.9 %; EOSINOPHILS # (AUTO) 0.2 10^3/uL (0.0-0.7); EOSINOPHILS % (AUTO) 2.6 %; HCT - HEMATOCRIT 41.2 % (42.0-52.0); HGB - HEMOGLOBIN 13.7 g/dL (14.0-18.0); LYMPHOCYTES # (AUTO) 1.9 10^3/uL (1.5-3.5); LYMPHOCYTES % (AUTO) 21.3 %; MEAN CORPUSCULAR HEMOGLOBIN 30.5 pg (27.0-31.0); MEAN CORPUSCULAR HGB CONC 33.3 g/dL (32.0-36.0); MEAN CORPUSCULAR VOLUME 91.8 fL (80.0-94.0); MEAN PLATELET VOLUME 9.2 fL (7.4-11.4); MONOCYTES # (AUTO) 0.6 10^3/uL (0.0-1.0); MONOCYTES % (AUTO) 6.5 %; NEUTROPHILS # (AUTO) 6.1 10^3/uL (1.5-6.6); NEUTROPHILS % (AUTO) 68.3 %; PLT - PLATELET COUNT 379 10^3/uL (130-450); RED BLOOD COUNT 4.49 10^6/uL (4.70-6.10); RED CELL DISTRIBUTION WIDTH 12.3 % (12.0-15.0); WHITE BLOOD COUNT 8.9 x10^3/uL (4.8-10.8)
[2021-04-06 18:19] LABS: CALCIUM 9.7 mg/dL (8.5-10.3); CREATININE 0.9 mg/dL (0.6-1.2); POTASSIUM 4.6 mmol/L (3.5-5.0)
== END ==
LOC: LAB.R 08:00
PROVIDERS: ATTEND Internal Medicine Infectious Disease
DX: R78.81 Bacteremia (principal)
CPT/HCPCS: 80048; 85025

== ENCOUNTER 2021-04-14 17:15 | Outpatient (CLI) | payer MEDICARE, OTHER ==
[2021-04-14 18:42] LABS: BASOPHILS # (AUTO) 0.1 10^3/uL (0.0-0.1); BASOPHILS % (AUTO) 1.2 %; EOSINOPHILS # (AUTO) 0.1 10^3/uL (0.0-0.7); EOSINOPHILS % (AUTO) 3.1 %; HCT - HEMATOCRIT 37.8 % (42.0-52.0); HGB - HEMOGLOBIN 12.6 g/dL (14.0-18.0); LYMPHOCYTES # (AUTO) 1.2 10^3/uL (1.5-3.5); LYMPHOCYTES % (AUTO) 27.8 %; MEAN CORPUSCULAR HEMOGLOBIN 30.5 pg (27.0-31.0); MEAN CORPUSCULAR HGB CONC 33.3 g/dL (32.0-36.0); MEAN CORPUSCULAR VOLUME 91.5 fL (80.0-94.0); MEAN PLATELET VOLUME 9.6 fL (7.4-11.4); MONOCYTES # (AUTO) 0.6 10^3/uL (0.0-1.0); MONOCYTES % (AUTO) 14.6 %; NEUTROPHILS # (AUTO) 2.3 10^3/uL (1.5-6.6); NEUTROPHILS % (AUTO) 53.1 %; PLT - PLATELET COUNT 228 10^3/uL (130-450); RED BLOOD COUNT 4.13 10^6/uL (4.70-6.10); RED CELL DISTRIBUTION WIDTH 12.7 % (12.0-15.0); WHITE BLOOD COUNT 4.3 x10^3/uL (4.8-10.8)
[2021-04-14 19:09] LABS: CALCIUM 9.2 mg/dL (8.5-10.3); CREATININE 2.1 mg/dL (0.6-1.2); POTASSIUM 4.6 mmol/L (3.5-5.0)
== END 2021-04-14 23:59 | disposition home or self-care (01) ==
LOC: LAB.R 17:15
PROVIDERS: ATTEND Internal Medicine Infectious Disease
DX: R78.81 Bacteremia (principal)
CPT/HCPCS: 36415; 80048; 85025

== ENCOUNTER 2021-04-15 14:20 | Outpatient (CLI) | payer MEDICARE, OTHER | END 2021-04-15 14:21 | disposition home or self-care (01) | LOC: LAB.S 14:20 | PROVIDERS: ATTEND Internal Medicine Cardiovascular Disease | DX: I48.0 Paroxysmal atrial fibrillation (principal) | CPT/HCPCS: 36416; 85610 ==

== ENCOUNTER 2021-04-20 18:30 | Outpatient (CLI) | payer MEDICARE, OTHER ==
[2021-04-20 21:13] LABS: BASOPHILS # (AUTO) 0.1 10^3/uL (0.0-0.1); BASOPHILS % (AUTO) 1.4 %; EOSINOPHILS # (AUTO) 0.3 10^3/uL (0.0-0.7); EOSINOPHILS % (AUTO) 3.7 %; HCT - HEMATOCRIT 40.3 % (42.0-52.0); HGB - HEMOGLOBIN 13.3 g/dL (14.0-18.0); LYMPHOCYTES # (AUTO) 1.9 10^3/uL (1.5-3.5); LYMPHOCYTES % (AUTO) 27.4 %; MEAN CORPUSCULAR HEMOGLOBIN 29.9 pg (27.0-31.0); MEAN CORPUSCULAR VOLUME 90.6 fL (80.0-94.0); MEAN PLATELET VOLUME 9.9 fL (7.4-11.4); MONOCYTES # (AUTO) 0.6 10^3/uL (0.0-1.0); MONOCYTES % (AUTO) 7.9 %; NEUTROPHILS # (AUTO) 4.2 10^3/uL (1.5-6.6); NEUTROPHILS % (AUTO) 59.2 %; PLT - PLATELET COUNT 286 10^3/uL (130-450); RED BLOOD COUNT 4.45 10^6/uL (4.70-6.10); RED CELL DISTRIBUTION WIDTH 12.2 % (12.0-15.0); WHITE BLOOD COUNT 7.1 x10^3/uL (4.8-10.8)
[2021-04-20 21:27] LABS: CALCIUM 10.1 mg/dL (8.5-10.3)
== END 2021-04-20 23:59 | disposition home or self-care (01) ==
LOC: LAB.R 18:30
PROVIDERS: ATTEND Internal Medicine
DX: R78.81 Bacteremia (principal)
CPT/HCPCS: 80048; 85025

== ENCOUNTER 2021-04-28 13:28 | Outpatient (CLI) | payer MEDICARE, OTHER | END 2021-04-28 13:29 | disposition home or self-care (01) | LOC: LAB.S 13:28 | PROVIDERS: ATTEND Internal Medicine Cardiovascular Disease | DX: I48.0 Paroxysmal atrial fibrillation (principal) | CPT/HCPCS: 36416; 85610 ==

== ENCOUNTER 2021-05-13 15:16 | Outpatient (CLI) | payer MEDICARE, OTHER | END 2021-05-13 15:17 | disposition home or self-care (01) | LOC: LAB.S 15:16 | PROVIDERS: ATTEND Internal Medicine Cardiovascular Disease | DX: I48.0 Paroxysmal atrial fibrillation (principal) | CPT/HCPCS: 85610 ==

== ENCOUNTER 2021-05-27 15:46 | Outpatient (CLI) | payer MEDICARE, OTHER | END 2021-05-27 15:47 | disposition home or self-care (01) | LOC: LAB.S 15:46 | PROVIDERS: ATTEND Internal Medicine Cardiovascular Disease | DX: I48.0 Paroxysmal atrial fibrillation (principal) | CPT/HCPCS: 36416; 85610 ==

== ENCOUNTER 2021-06-04 17:10 | Outpatient (CLI) | payer MEDICARE, OTHER | END 2021-06-04 17:11 | disposition critical access hospital (66) | LOC: EMS 17:10 | DX: R41.82 Altered mental status, unspecified (principal); R47.02 Dysphasia | CPT/HCPCS: A0425; A0427 ==

== ENCOUNTER 2021-06-04 17:41 | Inpatient (IN) | payer MEDICARE, OTHER ==
--- NOTE | 2021-06-04 17:50 | ED Physician Documentation ---
PD HPI FOCAL NEURO - Stated complaint Stated Complaint: AMS - History obtained from History obtained from: Patient, EMS - Additional information Additional information: 70-year-old gentleman with atrial fibrillation on Coumadin presents by ambulance on . His family had not seen him all day and he admits to drinking. They noted to be having some difficulty speaking and walking so he was brought in for a stroke evaluation. Patient is an unreliable historian as he is modestly confused. Prehospital blood sugar was unremarkable. Review of Systems Unable to obtain: Confused PD PAST MEDICAL HISTORY - Past Medical History Cardiovascular: Hypertension, Atrial fibrillation Respiratory: None GI: None : None Psych: None Musculoskeletal: None Derm: None - Past Surgical History Past Surgical History: Yes General: Cholecystectomy - Present Medications Home Medications: Ambulatory Orders Medication Instructions Recorded Confirmed Warfarin Sodium 5 mg PO DAILY 03/09/18 06/04/21 Buspirone HCl 10 mg PO BID 06/04/21 06/04/21 Cyclobenzaprine [Flexeril] 10 mg PO DAILY 06/04/21 06/04/21 Gabapentin [Neurontin] 100 mg PO TID 06/04/21 06/04/21 Metoprolol Succinate 25 mg PO DAILY 06/04/21 06/04/21 Rosuvastatin Calcium [Crestor] 5 mg PO DAILY 06/04/21 06/04/21 glipiZIDE [Glucotrol] 5 mg PO DAILY 06/04/21 06/04/21 polyethylene glycoL 3350 1 packet PO DAILY 06/04/21 06/04/21 [Polyethylene Glycol 3350] - Allergies Allergies/Adverse Reactions: Allergies Allergy/AdvReac Type Severity Reaction Status Date / Time No Known Drug Allergies Allergy Verified 03/09/18 02:40 - Social History Does the pt smoke?: No Smoking Status: Former smoker Does the pt drink ETOH?: Yes Does the pt have substance abuse?: Yes - Immunizations Immunizations are current?: Yes - POLST Patient has POLST: No PD ED PE NORMAL - Vitals Vital signs reviewed: Yes - General General: Other (And oriented to person and place but not time or events he has slow slurred speech and some difficulty processing commands.) - HEENT HEENT: PERRL, EOMI (With nystagmus bilaterally) - Neck Neck: Supple, no meningeal sign, No bony TTP - Respiratory Respiratory: No respiratory distress, Clear bilaterally - Abdomen Abdomen: Normal bowel sounds, Soft, Non tender - Back Back: No CVA TTP, No spinal TTP - Derm Derm: Normal color, Warm and dry - Neuro Neuro: No motor deficit, No sensory deficit, Other (He seems to have good strength in all 4 extremities but does have ataxia in upper and lower extremities and some truncal ataxia with sitting.) Eye Opening: Spontaneous Motor: Obeys Commands Verbal: Confused GCS Score: 14 Results - Vitals Vitals: Vital Signs - 24 hr 06/04/21 06/04/21 06/04/21 17:52 18:49 19:09 Temperature 36.5 C Heart Rate 88 137 H 126 H Respiratory 16 18 15 Rate Blood Pressure 119/78 143/102 H 103/77 O2 Saturation 99 94 94 06/04/21 06/04/21 19:15 19:52 Temperature Heart Rate 120 H 91 Respiratory 16 15 Rate Blood Pressure 102/89 H 153/99 H O2 Saturation 96 98 Oxygen O2 Source Room air - EKG (time done) 1823 Rate: Rate (enter#) (120) Rhythm: Atrial fibrillation [place]: Normal QRS: Normal Ischemia: Non specific changes. No: ST elevation c/w ischemia, ST depression - Labs Labs: Laboratory Tests 06/04/21 06/04/21 06/04/21 18:01 18:01 18:01 WBC 9.0 RBC 3.79 L Hgb 11.4 L Hct 34.3 L MCV 90.5 MCH 30.1 MCHC 33.2 RDW 14.1 Plt Count 225 MPV 9.1 Neut # (Auto) 6.2 Lymph # (Auto) 1.8 Beltrami # (Auto) 0.8 Eos # (Auto) 0.1 Baso # (Auto) 0.0 Absolute Nucleated RBC 0.00 Nucleated RBC % 0.0 PT 33.9 H INR 3.1 H Sodium 130 L Potassium 3.7 Chloride 95 L Carbon Dioxide 22 Anion Gap 13.0 BUN 26 H Creatinine 2.8 H Estimated GFR (MDRD) 23 L Glucose 116 H Calcium 9.0 Magnesium 2.1 Total Bilirubin 0.9 AST 46 H ALT 28 Alkaline Phosphatase 59 Total Protein 7.2 Albumin 4.1 Globulin 3.1 Albumin/Globulin Ratio 1.3 Lipase 19 L Nasal Adenovirus (PCR) Nasal B. parapertussis DNA (PCR) Nasal Coronavir 229E PCR Nasal Coronavir HKU1 PCR Nasal Coronavir NL63 PCR Nasal Coronavir OC43 PCR Nasal Enterovir/Rhinovir PCR Nasal Influenza B PCR Nasal Influenza A PCR Nasal Parainfluen 1 PCR Nasal Parainfluen 2 PCR Nasal Parainfluen 3 PCR Nasal Parainfluen 4 PCR Nasal RSV (PCR) Nasal B.pertussis DNA PCR Nasal C.pneumoniae (PCR) Amilcar Human Metapneumo PCR Nasal M.pneumoniae (PCR) Nasal SARS-CoV-2 (PCR) Ethyl Alcohol < 5.0 06/04/21 19:10 WBC RBC Hgb Hct MCV MCH MCHC RDW Plt Count MPV Neut # (Auto) Lymph # (Auto) [place]ami # (Auto) Eos # (Auto) Baso # (Auto) Absolute Nucleated RBC Nucleated RBC % PT INR Sodium Potassium Chloride Carbon Dioxide Anion Gap BUN Creatinine Estimated GFR (MDRD) Glucose Calcium Magnesium Total Bilirubin AST ALT Alkaline Phosphatase Total Protein Albumin Globulin Albumin/Globulin Ratio Lipase Nasal Adenovirus (PCR) NOT DETECTED Nasal B. parapertussis DNA (PCR) NOT DETECTED Nasal Coronavir 229E PCR NOT DETECTED Nasal Coronavir HKU1 PCR NOT DETECTED Nasal Coronavir NL63 PCR NOT DETECTED Nasal Coronavir OC43 PCR NOT DETECTED Nasal Enterovir/Rhinovir PCR NOT DETECTED Nasal Influenza B PCR NOT DETECTED Nasal Influenza A PCR NOT DETECTED Nasal Parainfluen 1 PCR NOT DETECTED Nasal Parainfluen 2 PCR NOT DETECTED Nasal Parainfluen 3 PCR NOT DETECTED Nasal Parainfluen 4 PCR NOT DETECTED Nasal RSV (PCR) NOT DETECTED Nasal B.pertussis DNA PCR NOT DETECTED Nasal C.pneumoniae (PCR) NOT DETECTED Amilcar Human Metapneumo PCR NOT DETECTED Nasal M.pneumoniae (PCR) NOT DETECTED Nasal SARS-CoV-2 (PCR) NOT DETECTED Ethyl Alcohol PD MEDICAL DECISION MAKING - ED course ED course: 70-year-old gentleman presents with strokelike symptoms, they may have been gone on for 24 hours. He is also not a TPA candidate doing to warfarin use. Frankly his exam looks more like alcohol intoxication than stroke per se. CT angiography of the head and labs were ordered. Review of the chart shows that he was here a few years ago for a visit related to alcohol intoxication. His lab work shows a slightly supratherapeutic INR at 3.1, acute renal injury noting that his creatinine today is 2.8 with a BUN of 26. He has had intermittently issues with poor renal function in the past. He also has a negligible alcohol level. He is on gabapentin and so another possibility would be impaired gabapentin filtering since that is completely renally excreted due to the acute renal injury causing a sedative hypnotic toxidrome. Because of the renal dysfunction the CT angiography was ordered and changed to noncontrast head CT which was unremarkable. Spoke with daughter Johanny Christina, at 7pm. He was tired last night, and acting off this morning and more so this afternoon. She noted speech difficulty and slurred speech this evening. She made sure he took all of his meds including his gabapentin this morning. There was alcohol in his room but no evidence that he was drinking. Progressive worsening over the last 24 hours per her description also argues against stroke and more for a toxic metabolic problem as outlined above. He is in rapid A. fib here, albeit modestly with heart rate usually in the mid 120s. He was administered IV metoprolol for this noting that he takes metoprolol at home. Kidney injury I asked the RN to do a bladder scan and he has over 750 mL in his bladder, potentially the reason for his JUANJO and we will place a Edmondson. First dose metoprolol, not very effective and repeated without much change and given 10mg IV diltiazem with good rate control - Critical Care Time(min): 35 Time Includes: Direct patient care, Review records, Reassess patient, Document care, Coordinate care, Medical consult, Family consult for tx dec, See progress note Data interpretation: Labs, Pulse ox Procedures included in critical care time: Peripheral IV Procedures excluded from critical care time: EKG Departure - Departure Disposition: ED Place in Observation Clinical Impression: Altered mental status, JUANJO (acute kidney injury), Rapid atrial fibrillation, Urinary retention Condition: Serious Discharge Date/Time: 06/04/21 21:40
[2021-06-04] MEDS ORDERED: IOPAMIDOL-300 100 ML VIAL ONE (17:56)
[2021-06-04 18:07] LABS: BASOPHILS % (AUTO) 0.3 %; EOSINOPHILS # (AUTO) 0.1 10^3/uL (0.0-0.7); EOSINOPHILS % (AUTO) 1.2 %; HCT - HEMATOCRIT 34.3 % (42.0-52.0); HGB - HEMOGLOBIN 11.4 g/dL (14.0-18.0); LYMPHOCYTES # (AUTO) 1.8 10^3/uL (1.5-3.5); LYMPHOCYTES % (AUTO) 19.9 %; MEAN CORPUSCULAR HEMOGLOBIN 30.1 pg (27.0-31.0); MEAN CORPUSCULAR HGB CONC 33.2 g/dL (32.0-36.0); MEAN CORPUSCULAR VOLUME 90.5 fL (80.0-94.0); MEAN PLATELET VOLUME 9.1 fL (7.4-11.4); MONOCYTES # (AUTO) 0.8 10^3/uL (0.0-1.0); MONOCYTES % (AUTO) 9.3 %; NEUTROPHILS # (AUTO) 6.2 10^3/uL (1.5-6.6); NEUTROPHILS % (AUTO) 69.1 %; PLT - PLATELET COUNT 225 10^3/uL (130-450); RED BLOOD COUNT 3.79 10^6/uL (4.70-6.10); RED CELL DISTRIBUTION WIDTH 14.1 % (12.0-15.0)
[2021-06-04 18:16] LABS: INR 3.1 (0.8-1.2); PT - PROTHROMBIN TIME 33.9 secs (9.9-12.6)
[2021-06-04 18:24] LABS: ALBUMIN 4.1 g/dL (3.2-5.5); ALBUMIN/GLOBULIN RATIO 1.3 (1.0-2.2); ALKALINE PHOSPHATASE 59 IU/L (42-121); ALT ALANINE AMINOTRANSFERASE 28 IU/L (10-60); AST ASPARTATE AMINOTRANSFERASE 46 IU/L (10-42); BILIRUBIN,TOTAL 0.9 mg/dL (0.2-1.0); BUN - BLOOD UREA NITROGEN 26 mg/dL (6-20); CARBON DIOXIDE - CO2 22 mmol/L (21-32); CHLORIDE 95 mmol/L (101-111); CREATININE 2.8 mg/dL (0.6-1.2); ETOH - ETHANOL < 5.0 mg/dL; GFR - MDRD 23 (>89); GLUCOSE 116 mg/dL (70-100); LIPASE 19 U/L (22-51); MAGNESIUM 2.1 mg/dL (1.7-2.8); POTASSIUM 3.7 mmol/L (3.5-5.0); SODIUM 130 mmol/L (135-145); TOTAL PROTEIN 7.2 g/dL (6.7-8.2)
[2021-06-04] MEDS ORDERED: SODIUM CHLORIDE 0.9% 1,000 ML IV STA (18:48)
[2021-06-04] MEDS ORDERED: METOPROLOL 5 MG/5 ML VIAL IVP STA ×2 (19:00→20:47)
--- NOTE | 2021-06-04 19:02 | CT Report ---
PROCEDURE: HEAD WO INDICATIONS: AMS TECHNIQUE: Noncontrast 4.5 mm thick angled axial sections acquired from the foramen magnum to the vertex. For r adiation dose reduction, the following was used: automated exposure control, adjustment of mA and/or kV according to patient size. COMPARISON: 03/09/[address] FINDINGS: Image quality: Excellent. CSF spaces: Basal cisterns are patent. No extra-axial fluid collections. Ventricles are normal in size and shape. Brain: No midline shift. No intracranial masses or hemorrhage. Christine-white matter interface is norm al. Global cerebral volume loss and chronic microvascular ischemic change similar to the comparison study. Skull and face: Calvarium and visualized facial bones are intact, without suspicious lesions. Sinuses: Visualized sinuses and mastoids are clear. IMPRESSION: No acute intracranial finding. Reviewed by: Davide Del Cid MD on 06/04/2021 7:01 PM PST Approved by: Davide Del Cid MD on 06/04/2021 7:01 PM PST Station ID: [id number]
[2021-06-04] MEDS ORDERED: ACETAMINOPHEN 325 MG TABLET PO PRN (20:04)
[2021-06-04] MEDS ORDERED: SODIUM CHLORIDE FLUSH 0.9% 10 ML SYRINGE IVP PRN (20:04)
[2021-06-04] MEDS ORDERED: ONDANSETRON 4 MG/2 ML VIAL IVP PRN (20:04)
[2021-06-04 20:13] LABS: CORONAVIRUS 229E-RESP PCR NOT DETECTED; CORONAVIRUS HKU1-RESP PCR NOT DETECTED; CORONAVIRUS NL63-RESP PCR NOT DETECTED; CORONAVIRUS OC43-RESP PCR NOT DETECTED; HUMAN METAPNEUMOVIRUS NOT DETECTED; INFLUENZA A- RESP PCR PANEL NOT DETECTED; INFLUENZA B - RESP PCR PANEL NOT DETECTED; PARAINFLUENZA VIRUS 1 NOT DETECTED; PARAINFLUENZA VIRUS 2 NOT DETECTED; PARAINFLUENZA VIRUS 3 NOT DETECTED; PARAINFLUENZA VIRUS 4 NOT DETECTED; RHINOVIRUS/ENTEROVIRUS NOT DETECTED; RSV- RESP PCR PANEL NOT DETECTED; SARS-CoV-2 -RESP PCR PANEL NOT DETECTED
[2021-06-04 20:14] LABS: B. PARAPERTUSSIS- RESP PCR PAN NOT DETECTED; B. PERTUSSIS- RESP PCR PANEL NOT DETECTED; C. PNEUMONIAE- RESP PCR PANEL NOT DETECTED; M. PNEUMONIAE- RESP PCR PANEL NOT DETECTED
--- NOTE | 2021-06-04 20:14 | HISTORY & PHYSICAL EXAMINATION ---
Chief Complaint - Chief Complaint Chief Complaint: altered mental status History of Present Illness - Admitted From Admitted From:: [facility] ED - History Obtained From Records Reviewed: yes History obtained from: ED physician Exam Limitations: altered mental status - History of Present Illness HPI Comment/Other: 70-year-old male with history of atrial fibrillation on Coumadin who was brought in by EMS after his family called 911. He leaves in his home alone but his daughter lives on the same property. She had not seen him all day and when she checked on him noticed he was having some difficulty speaking and walking. She was concerned about a stroke so had him brought to the ED for evaluation. Patient is not a very good historian at the moment. His speech is mostly unintelligible. Work-up in the ED included a CT of the brain without contrast which was negative for any acute intracranial processes. He was noted to have a creatinine of 2.8. He was also noted to have urinary retention. History - Past Medical History Cardiovascular: reports: Hypertension, High cholesterol, Atrial fibrillation Respiratory: reports: None Neuro: reports: Other (Diabetic Neuropathy) Endocrine/Autoimmune: reports: Type 2 diabetes GI: reports: None : reports: None Psych: reports: Anxiety Musculoskeletal: reports: None Derm: reports: None MRSA Hx?: No - Past Surgical History General: reports: Cholecystectomy - Family & Social History Family History Comment/Other: Family history is currently limited due to patient's altered mental status. Social History Notes: Lives in his home alone. However he lives on the same [place] as his daughter. Smokes about 3 cigarettes daily. Occasionally consumes alcohol. Occasional marijuana use. - POLST Patient has POLST: No POLST Status: Full Code Meds/Allgy - Home Medications Home Medications: Ambulatory Orders Medication Instructions Recorded Confirmed Warfarin Sodium 5 mg PO DAILY 03/09/18 06/04/21 Buspirone HCl 10 mg PO BID 06/04/21 06/04/21 Cyclobenzaprine [Flexeril] 10 mg PO DAILY 06/04/21 06/04/21 Gabapentin [Neurontin] 100 mg PO TID 06/04/21 06/04/21 Metoprolol Succinate 25 mg PO DAILY 06/04/21 06/04/21 Rosuvastatin Calcium [Crestor] 5 mg PO DAILY 06/04/21 06/04/21 glipiZIDE [Glucotrol] 5 mg PO DAILY 06/04/21 06/04/21 polyethylene glycoL 3350 1 packet PO DAILY 06/04/21 06/04/21 [Polyethylene Glycol 3350] - Allergies Allergies/Adverse Reactions: Allergies Allergy/AdvReac Type Severity Reaction Status Date / Time No Known Drug Allergies Allergy Verified 03/09/18 02:40 Review of Systems - Constitutional Constitutional: denies: Fatigue, Fever, Chills, Weakness - Eyes Eyes: denies: Pain - Ears, Nose & Throat Ears, Nose & Throat: denies: Ear pain - Cardiovascular Cariovascular: reports: Irregular heart rate. denies: Palpitations, Chest pain, Edema, Lightheadedness, Syncope, Exertional dyspnea - Respiratory Respiratory: denies: Cough, Sputum production, Wheezing, SOB at rest, SOB with exertion - Gastrointestinal Gastrointestinal: denies: Abdominal pain, Abdominal distention, Constipation, Nausea, Vomiting, Coffee grounds emesis, Reflux/heartburn - Genitourinary Genitourinary: denies: Dysuria, Frequency, Urgency, Hematuria - Musculoskeletal Musculoskeletal: denies: Muscle pain, Back pain, Muscle aches, Stiffness - Integumentary Integumentary: denies: Rash, Pruritis, Lesions, Dryness - Neurological Neurological: denies: General weakness, Focal weakness, Headache, Dizziness - Psychiatric Psychiatric: denies: Depression, Anxiety - Endocrine Endocrine: denies: Polyuria, Polydypsia - Hematologic/Lymphatic Hematologic/Lymphatic: denies: Anemia, Bruising, Petechiae Prior Level of Functionality: Patient lives alone and is normally independent of activities of daily living. Exam - Vital Signs Vital Signs: Vital Signs x48h Temp Pulse Resp BP Pulse Ox 06/04/21 19:52 91 15 153/99 H 98 06/04/21 19:15 120 H 16 102/89 H 96 06/04/21 19:09 126 H 15 103/77 94 06/04/21 18:49 137 H 18 143/102 H 94 06/04/21 17:52 36.5 C 88 16 119/78 99 - Physical Exam General Appearance: positive: No acute distress, Alert, Other (oriented to self and place but not to time or reason) Eyes Bilateral: positive: PERRL, EOMI ENT: positive: Dry mucous membranes Neck: positive: No JVD, Trachea midline Respiratory: positive: Chest non-tender, No respiratory distress, Breath sounds nml. negative: Wheezes, Rales, Rhonchi Cardiovascular: positive: No murmur, Irregularly irregular, Tachycardia Abdomen: positive: Non-tender, No organomegaly, Nml bowel sounds, No distention. negative: Guarding, Rebound Back: positive: Nml inspection Skin: positive: Color nml, No rash, Warm, Dry Extremities: positive: Non-tender, Full ROM, Nml appearance, No pedal edema Neurologic/Psychiatric: positive: Motor nml, Sensation nml, Mood/affect nml, Other (Oriented to self and place but not time or reason. Speech is mostly unintelligible) Conclusion/Plan - Problem List (1) Altered mental status Conclusion/Plan: Etiology undetermined. It is suspected that patient's medication could be contributing. Patient's gabapentin is being held. Cannot rule out CVA however CT of the brain without contrast was unremarkable. Will consider repeating CT/CT angio of the head and neck in 48 hours. (2) JUANJO (acute kidney injury) Conclusion/Plan: Possibly secondary to urinary retention and/or dehydration Edmondson catheter placed. Will order Flomax. IV hydration with normal saline at 125 mL/h. We will recheck BMP in the morning. Anticipating improvement in renal function. (3) Atrial fibrillation with RVR Conclusion/Plan: Heart rate has been as high as 120s. Patient was given a dose of diltiazem and a couple doses of metoprolol 5 mg IV in the ED. We will order diltiazem 30 mg p.o. every 6 hours. Metoprolol succinate 25 mg p.o. daily ordered for the morning. Continue patient's Coumadin. INR was 3.1. We will recheck morning INR before resumption of Coumadin. (4) Diabetes mellitus Conclusion/Plan: Patient's glipizide held. Sliding scale insulin and Accu-Cheks ordered. (5) Hyperlipidemia Conclusion/Plan: On rosuvastatin 5 mg p.o. daily. (6) Urinary retention Conclusion/Plan: Edmondson catheter in place. Flomax 0.4 mg p.o. daily ordered. - Lab Results Fish Bones: 06/05/21 04:20 06/05/21 04:20 Core Measures - Anticipated LOS I expect patient to be DC'd or transferred within 96 hours.: Yes - DVT/VTE - Prophylaxis VTE/DVT Device ordered at admit?: Yes
[2021-06-04 20:45] LABS: MUDS CUTOFF CONCENTRATIONS CUTOFF CONC BELOW:
[2021-06-04 20:59] LABS: THC CANNABINOID SCREEN, URINE POSITIVE (NEGATIVE)
[2021-06-04 21:00] LABS: AMPHETAMINE SCREEN,URINE NEGATIVE (NEGATIVE); BENZODIAZEPINES SCREEN, URINE NEGATIVE (NEGATIVE); COCAINE SCREEN URINE NEGATIVE (NEGATIVE); METHAMPHETAMINES SCREEN, URINE NEGATIVE (NEGATIVE); OPIATE SCREEN, URINE NEGATIVE (NEGATIVE)
[2021-06-04 21:01] LABS: BARBITURATE SCREEN,UR NEGATIVE (NEGATIVE); METHADONE SCREEN, URINE NEGATIVE (NEGATIVE); OXYCODONE SCREEN, URINE POSITIVE (NEGATIVE); PROPOXYPHENE SCREEN, URINE NEGATIVE (NEGATIVE); TRICYCLIC ANTIDEPRESSANT,URINE POSITIVE (NEGATIVE)
[2021-06-04] MEDS ORDERED: diltiaZEM INJ 5 MG/ML VIAL IVP ONE (21:12)
[2021-06-04] MEDS: diltiaZEM 30 MG TABLET PO SCH (23:10)
[2021-06-04] MEDS: SODIUM CHLORIDE 0.9% 1,000 ML IV SCH (23:17)
[2021-06-04] MEDS: SODIUM CHLORIDE FLUSH 0.9% 10 ML SYRINGE IVP SCH (23:20)
[2021-06-05] MEDS: diltiaZEM 30 MG TABLET PO SCH ×2 (03:09→05:24)
[2021-06-05 05:08] LABS: BASOPHILS % (AUTO) 0.3 %; EOSINOPHILS # (AUTO) 0.1 10^3/uL (0.0-0.7); EOSINOPHILS % (AUTO) 1.9 %; HCT - HEMATOCRIT 35.1 % (42.0-52.0); HGB - HEMOGLOBIN 11.8 g/dL (14.0-18.0); LYMPHOCYTES # (AUTO) 1.6 10^3/uL (1.5-3.5); LYMPHOCYTES % (AUTO) 22.3 %; MEAN CORPUSCULAR HEMOGLOBIN 29.9 pg (27.0-31.0); MEAN CORPUSCULAR HGB CONC 33.6 g/dL (32.0-36.0); MEAN CORPUSCULAR VOLUME 88.9 fL (80.0-94.0); MEAN PLATELET VOLUME 9.5 fL (7.4-11.4); MONOCYTES # (AUTO) 0.7 10^3/uL (0.0-1.0); MONOCYTES % (AUTO) 9.8 %; NEUTROPHILS # (AUTO) 4.8 10^3/uL (1.5-6.6); NEUTROPHILS % (AUTO) 65.3 %; PLT - PLATELET COUNT 230 10^3/uL (130-450); RED BLOOD COUNT 3.95 10^6/uL (4.70-6.10); RED CELL DISTRIBUTION WIDTH 13.8 % (12.0-15.0); WHITE BLOOD COUNT 7.3 x10^3/uL (4.8-10.8)
[2021-06-05 05:10] LABS: CALCIUM 8.8 mg/dL (8.5-10.3); CREATININE 1.7 mg/dL (0.6-1.2); POTASSIUM 3.4 mmol/L (3.5-5.0)
[2021-06-05 05:11] LABS: INR 3.4 (0.8-1.2); PT - PROTHROMBIN TIME 37.3 secs (9.9-12.6)
[2021-06-05] MEDS: SODIUM CHLORIDE 0.9% 1,000 ML IV SCH ×2 (06:45→16:56)
[2021-06-05] MEDS ORDERED: POTASSIUM CHLORIDE 20 MEQ TABLET PO ONE (06:57)
[2021-06-05] MEDS ORDERED: METOPROLOL SUCCINATE 25 MG TABLET PO SCH (09:00)
[2021-06-05] MEDS: INSULIN ASPART 300 UNIT/3 ML PEN SUBQ SCH ×4 (10:31→20:37)
[2021-06-05] MEDS: METOPROLOL SUCCINATE 50 MG TABLET PO SCH (10:47)
[2021-06-05] MEDS: TAMSULOSIN 0.4 MG CAPSULE PO SCH (10:47)
[2021-06-05] MEDS: SODIUM CHLORIDE FLUSH 0.9% 10 ML SYRINGE IVP SCH ×2 (10:48→17:58)
[2021-06-05] MEDS: ASPIRIN CHEW 81 MG TABLET PO SCH (11:04)
--- NOTE | 2021-06-05 19:42 | PROVIDER PROGRESS NOTE ---
Assessment/Plan - Problem List (1) Altered mental status Assessment/Plan: Improved/ Resolved Etiology undetermined. It is suspected that patient's medication could be contributing. Patient's gabapentin is being held. We will continue to observe patient overnight. If no recurrence of altered mental status will consider discharge on 06/06/2021. (2) JUANJO (acute kidney injury) Assessment/Plan: Improved Creatinine today is 1.7 with BUN 22 and estimated GFR of 40. This was thought to be secondary to urinary retention and/or dehydration. Edmondson catheter in place. On Flomax 0.4 mg p.o. daily. Continue IV hydration with normal saline at 125 mL/h. Anticipating continued improvement. Will recheck BMP in the morning (3) Atrial fibrillation with RVR Assessment/Plan: Heart rate continues to fluctuate between 80 and 120. Diltiazem was discontinued. Patient's metoprolol succinate dose was increased to 50 mg p.o. daily. INR this morning was 3.4. We will continue to hold Coumadin and monitoring INR. (4) Diabetes mellitus Assessment/Plan: Scale insulin before every meal at bedtime and Accu-Cheks. Glipizide held. (5) Hyperlipidemia Assessment/Plan: On rosuvastatin 5 mg p.o. daily. (6) Urinary retention Assessment/Plan: Edmondson catheter in place. Flomax 0.4 mg p.o. daily - Current Meds Current Meds: Current Medications Generic Name Dose Route Start Last Admin Trade Name Freq PRN Reason Stop Dose Admin Aspirin 81 mg 06/05/21 11:00 06/05/21 11:04 Aspirin Chew 81 Mg Tablet PO 81 mg DAILY ELOISA Administration Sodium Chloride 1,000 mls @ 125 mls/hr 06/04/21 21:00 06/05/21 16:56 Normal Saline 0.9% IV 125 mls/hr .Q8H ELOISA Administration Insulin Aspart 1 - 5 unit 06/05/21 08:00 06/05/21 16:56 Insulin Aspart 300 Unit/3 Ml Pen SUBQ Not Given 0800,1200,1700,2100 [facility] Protocol Metoprolol Succinate 50 mg 06/05/21 08:00 06/05/21 10:47 Metoprolol Succinate 50 Mg Tablet PO 50 mg DAILY ELOISA Administration Sodium Chloride 10 ml 06/05/21 01:00 06/05/21 17:58 Sodium Chloride Flush 0.9% 10 Ml Syringe IVP Not Given 0100,0900,1700 ELOISA Tamsulosin HCl 0.4 mg 06/05/21 09:00 06/05/21 10:47 Tamsulosin 0.4 Mg Capsule PO 0.4 mg DAILY ELOISA Administration - Lab Result Fish Bone Diagrams: 06/05/21 04:20 06/05/21 04:20 - Additional Planning My Orders: My Active Orders 06/04/21 20:04 Activity Orders [RC] Q2HR IO [RC] IOSHIFT Initiate Bowel Care Protocol [RC] .protocol Initiate Line Care Protocol [RC] QSHIFT Initiate Personal Care Protoco [RC] .protocol Oxygen Therapy [RC] .PRN Telemetry- [RC] Q4HR Vital Signs [RC] Q4HR Acetaminophen [Tylenol] 650 mg PO Q4HR PRN Ondansetron Inj [Zofran Inj] 4 mg IVP Q6HR PRN Sodium Chloride Flush 0.9% [Normal Saline Flush 0.9%] 10 ml IVP PRN PRN Code Status [OTHERS] Routine Condition of Patient [OTHERS] Routine DVT Prophylaxis [OTHERS] Routine 06/04/21 20:08 SCDs [RC] QSHIFT 06/04/21 21:00 Sodium Chloride 0.9% [Normal Saline 0.9%] 1,000 ml IV 125 mls/hr 06/04/21 22:24 Blood Glucose Checks - Eating [RC] 0800,1200,1700,2100 Initiate Hypoglycemia Protocol [RC] .protocol 06/05/21 01:00 Sodium Chloride Flush 0.9% [Normal Saline Flush 0.9%] 10 ml IVP 0100,0900,1700 06/05/21 08:00 Insulin Aspart [NovoLOG] 1 - 5 unit SUBQ 0800,1200,1700,2100 06/05/21 09:00 Tamsulosin [Flomax] 0.4 mg PO DAILY 06/06/21 05:00 BMP - BASIC METABOLIC PANEL [CHEM] DAILYLAB CBC - COMP BLD CT W/AUTO DIFF [HEME] DAILYLAB PT WITH INR [COAG] DAILYLAB 06/07/21 05:00 BMP - BASIC METABOLIC PANEL [CHEM] DAILYLAB CBC - COMP BLD CT W/AUTO DIFF [HEME] DAILYLAB PT WITH INR [COAG] DAILYLAB 06/08/21 05:00 BMP - BASIC METABOLIC PANEL [CHEM] DAILYLAB CBC - COMP BLD CT W/AUTO DIFF [HEME] DAILYLAB PT WITH INR [COAG] DAILYLAB 06/09/21 05:00 BMP - BASIC METABOLIC PANEL [CHEM] DAILYLAB CBC - COMP BLD CT W/AUTO DIFF [HEME] DAILYLAB PT WITH INR [COAG] DAILYLAB 06/10/21 05:00 BMP - BASIC METABOLIC PANEL [CHEM] DAILYLAB CBC - COMP BLD CT W/AUTO DIFF [HEME] DAILYLAB 06/11/21 05:00 BMP - BASIC METABOLIC PANEL [CHEM] DAILYLAB CBC - COMP BLD CT W/AUTO DIFF [HEME] DAILYLAB Subjective - Subjective Patient Reports: Other (Patient was resting comfortably in bed at time of exam. He is currently very lucid and aware of his environment. Reports soreness in his shoulders which she thinks is from laying down. Denies any other complaints.) Objective Vital Signs: Vital Signs - 24 hr 06/04/21 06/04/21 06/04/21 19:52 20:45 20:58 Temperature Heart Rate 91 Heart Rate [ Brachial] Respiratory 15 15 Rate Blood Pressure 153/99 H 120/78 109/78 Blood Pressure [Right Brachial artery] O2 Saturation 98 06/04/21 06/04/21 06/04/21 22:00 23:10 23:12 Temperature 37.0 C 36.5 C Heart Rate Heart Rate [ 105 H 122 H Brachial] Respiratory 20 16 Rate Blood Pressure 130/102 H Blood Pressure 98/68 130/102 H [Right Brachial artery] O2 Saturation 94 97 06/04/21 06/04/21 06/05/21 23:40 23:49 04:25 Temperature 36.5 C 36.7 C Heart Rate 122 H Heart Rate [ 86 Brachial] Respiratory 16 20 Rate Blood Pressure Blood Pressure 122/74 120/84 H [Right Brachial artery] O2 Saturation 97 94 06/05/21 06/05/21 06/05/21 05:24 08:39 12:18 Temperature 36.5 C 36.6 C Heart Rate Heart Rate [ 106 H 82 Brachial] Respiratory 20 20 Rate Blood Pressure 129/74 Blood Pressure 139/84 H 115/62 [Right Brachial artery] O2 Saturation 96 97 06/05/21 16:54 Temperature 36.4 C L Heart Rate Heart Rate [ 95 Brachial] Respiratory 20 Rate Blood Pressure Blood Pressure 121/64 [Right Brachial artery] O2 Saturation 95 Oxygen O2 Source Room air I&O (Last 24 Hrs): Intake and Output Totals x24h 06/03/21 06/04/21 06/05/21 23:59 23:59 23:59 Intake Total 735 2173.333 Output Total 700 3950 Balance 35 -1776.667 General: Alert, Oriented x3, Cooperative, No acute distress HEENT: PERRLA, EOMI Neck: Supple, No JVD Neuro: Alert, Non Focal, Oriented Times 3 Cardiovascular: Other (irregularly irregular rhythm) Respiratory: Chest non-tender, No respiratory distress, Breath sounds nml Abdomen: Normal bowel sounds, Soft, No tenderness Extremities: No clubbing, No edema Skin: No rashes, No breakdown - Results Results: Laboratory Results WBC 7.3 x10^3/uL (4.8-10.8) 06/05/21 04:20 RBC 3.95 10^6/uL (4.70-6.10) L 06/05/21 04:20 Hgb 11.8 g/dL (14.0-18.0) L 06/05/21 04:20 Hct 35.1 % (42.0-52.0) L 06/05/21 04:20 MCV 88.9 fL (80.0-94.0) 06/05/21 04:20 MCH 29.9 pg (27.0-31.0) 06/05/21 04:20 MCHC 33.6 g/dL (32.0-36.0) 06/05/21 04:20 RDW 13.8 % (12.0-15.0) 06/05/21 04:20 Plt Count 230 10^3/uL (130-450) 06/05/21 04:20 MPV 9.5 fL (7.4-11.4) 06/05/21 04:20 Neut # (Auto) 4.8 10^3/uL (1.5-6.6) 06/05/21 04:20 Lymph # (Auto) 1.6 10^3/uL (1.5-3.5) 06/05/21 04:20 [place] # (Auto) 0.7 10^3/uL (0.0-1.0) 06/05/21 04:20 Eos # (Auto) 0.1 10^3/uL (0.0-0.7) 06/05/21 04:20 Baso # (Auto) 0.0 10^3/uL (0.0-0.1) 06/05/21 04:20 Absolute Nucleated RBC 0.00 x10^3/uL 06/05/21 04:20 Nucleated RBC % 0.0 /100WBC 06/05/21 04:20 PT 37.3 secs (9.9-12.6) H 06/05/21 04:20 INR 3.4 (0.8-1.2) H 06/05/21 04:20 Sodium 133 mmol/L (135-145) L 06/05/21 04:20 Potassium 3.4 mmol/L (3.5-5.0) L 06/05/21 04:20 Chloride 99 mmol/L (101-111) L 06/05/21 04:20 Carbon Dioxide 24 mmol/L (21-32) 06/05/21 04:20 Anion Gap 10.0 (6-13) 06/05/21 04:20 BUN 22 mg/dL (6-20) H 06/05/21 04:20 Creatinine 1.7 mg/dL (0.6-1.2) H 06/05/21 04:20 Estimated GFR (MDRD) 40 (>89) L 06/05/21 04:20 Glucose 117 mg/dL (70-100) H 06/05/21 04:20 Calcium 8.8 mg/dL (8.5-10.3) 06/05/21 04:20 Magnesium 2.1 mg/dL (1.7-2.8) 06/04/21 18:01 Total Bilirubin 0.9 mg/dL (0.2-1.0) 06/04/21 18:01 AST 46 IU/L (10-42) H 06/04/21 18:01 ALT 28 IU/L (10-60) 06/04/21 18:01 Alkaline Phosphatase 59 IU/L (42-121) 06/04/21 18:01 Ammonia < 10.0 umol/L (7-35) 06/05/21 12:22 Total Creatine Kinase 190 IU/L (22-269) 12/26/21 12:22 Total Protein 7.2 g/dL (6.7-8.2) 06/04/21 18:01 Albumin 4.1 g/dL (3.2-5.5) 06/04/21 18:01 Globulin 3.1 g/dL (2.1-4.2) 06/04/21 18:01 Albumin/Globulin Ratio 1.3 (1.0-2.2) 06/04/21 18:01 Lipase 19 U/L (22-51) L 06/04/21 18:01 TSH 0.94 uIU/mL (0.34-5.60) 06/05/21 12:22 Nasal Adenovirus (PCR) NOT DETECTED 06/04/21 19:10 Nasal B. parapertussis DNA (PCR) NOT DETECTED 06/04/21 19:10 Nasal Coronavir 229E PCR NOT DETECTED 06/04/21 19:10 Nasal Coronavir HKU1 PCR NOT DETECTED 06/04/21 19:10 Nasal Coronavir NL63 PCR NOT DETECTED 06/04/21 19:10 Nasal Coronavir OC43 PCR NOT DETECTED 06/04/21 19:10 Nasal Enterovir/Rhinovir PCR NOT DETECTED 06/04/21 19:10 Nasal Influenza B PCR NOT DETECTED 06/04/21 19:10 Nasal Influenza A PCR NOT DETECTED 06/04/21 19:10 Nasal Parainfluen 1 PCR NOT DETECTED 06/04/21 19:10 Nasal Parainfluen 2 PCR NOT DETECTED 06/04/21 19:10 Nasal Parainfluen 3 PCR NOT DETECTED 06/04/21 19:10 Nasal Parainfluen 4 PCR NOT DETECTED 06/04/21 19:10 Nasal RSV (PCR) NOT DETECTED 06/04/21 19:10 Nasal B.pertussis DNA PCR NOT DETECTED 06/04/21 19:10 Nasal C.pneumoniae (PCR) NOT DETECTED 06/04/21 19:10 Amilcar Human Metapneumo PCR NOT DETECTED 06/04/21 19:10 Nasal M.pneumoniae (PCR) NOT DETECTED 06/04/21 19:10 Nasal SARS-CoV-2 (PCR) NOT DETECTED 06/04/21 19:10 Urine Opiates Screen NEGATIVE (NEGATIVE) 06/04/21 20:21 Ur Oxycodone Screen POSITIVE (NEGATIVE) H 06/04/21 20:21 Urine Methadone Screen NEGATIVE (NEGATIVE) 06/04/21 20:21 Ur Propoxyphene Screen NEGATIVE (NEGATIVE) 06/04/21 20:21 Ur Barbiturates Screen NEGATIVE (NEGATIVE) 06/04/21 20:21 Ur Tricyclics Screen POSITIVE (NEGATIVE) H 06/04/21 20:21 Ur Phencyclidine Scrn NEGATIVE (NEGATIVE) 06/04/21 20:21 Ur Amphetamine Screen NEGATIVE (NEGATIVE) 06/04/21 20:21 U Methamphetamines Scrn NEGATIVE (NEGATIVE) 06/04/21 20:21 U Benzodiazepines Scrn NEGATIVE (NEGATIVE) 06/04/21 20:21 Urine Cocaine Screen NEGATIVE (NEGATIVE) 06/04/21 20:21 U Cannabinoids Screen POSITIVE (NEGATIVE) H 06/04/21 20:21 Ethyl Alcohol < 5.0 mg/dL 06/04/21 18:01 ABX Reporting Has patient been on IV antibiotics over the past 48 hours?: No
[2021-06-06] MEDS: SODIUM CHLORIDE 0.9% 1,000 ML IV SCH ×2 (01:01→09:31)
[2021-06-06] MEDS: SODIUM CHLORIDE FLUSH 0.9% 10 ML SYRINGE IVP SCH ×2 (03:12→09:32)
[2021-06-06 05:32] LABS: BASOPHILS % (AUTO) 0.3 %; EOSINOPHILS # (AUTO) 0.1 10^3/uL (0.0-0.7); EOSINOPHILS % (AUTO) 1.8 %; HCT - HEMATOCRIT 36.8 % (42.0-52.0); HGB - HEMOGLOBIN 12.5 g/dL (14.0-18.0); LYMPHOCYTES # (AUTO) 1.6 10^3/uL (1.5-3.5); LYMPHOCYTES % (AUTO) 20.5 %; MEAN CORPUSCULAR HEMOGLOBIN 29.8 pg (27.0-31.0); MEAN CORPUSCULAR VOLUME 87.8 fL (80.0-94.0); MEAN PLATELET VOLUME 8.8 fL (7.4-11.4); MONOCYTES # (AUTO) 0.6 10^3/uL (0.0-1.0); MONOCYTES % (AUTO) 7.3 %; NEUTROPHILS # (AUTO) 5.6 10^3/uL (1.5-6.6); NEUTROPHILS % (AUTO) 69.6 %; PLT - PLATELET COUNT 255 10^3/uL (130-450); RED BLOOD COUNT 4.19 10^6/uL (4.70-6.10); RED CELL DISTRIBUTION WIDTH 13.6 % (12.0-15.0)
[2021-06-06 05:40] LABS: CALCIUM 9.2 mg/dL (8.5-10.3)
[2021-06-06 06:18] LABS: PT - PROTHROMBIN TIME 33.6 secs (9.9-12.6)
--- NOTE | 2021-06-06 08:18 | PHARMACY PROGRESS NOTE ---
- Best Possible Medication History Admit Date and Time: 06/05/21 1037 Processed by: Pharmacy Medication History completed: Yes Patient Interview: Pt unable to participate Secondary Source(s): Physician records, Pharmacy records, Insurance records As the person ultimately responsible for medication therapy, providers are able to order a medication from an existing home medication list in [facility] via the "Reconcile Routine" prior to Confirmation of that medication by behaviour support teacher. Such practice is discouraged except when the physician, in their clinical judgment, deems that a medical need exists for a medication without regard to previous use.
[2021-06-06] MEDS: METOPROLOL SUCCINATE 50 MG TABLET PO SCH (09:31)
[2021-06-06] MEDS: TAMSULOSIN 0.4 MG CAPSULE PO SCH (09:31)
[2021-06-06] MEDS: ASPIRIN CHEW 81 MG TABLET PO SCH (09:31)
[2021-06-06] MEDS: INSULIN ASPART 300 UNIT/3 ML PEN SUBQ SCH ×2 (09:32→11:57)
[2021-06-06 12:14] VITALS: BP 110/72
--- NOTE | 2021-06-06 13:25 | Discharge Plan ---
Discharge Plan Problem Reviewed?: Yes Disposition: Home, Self Care Condition: Stable Prescriptions: Tamsulosin [Flomax] 0.4 mg PO DAILY #30 cap Diet: Cardiac Activity Restrictions: Activity as Tolerated Assistance Devices: Cane Health Concerns: You were seen in the hospital because of confusion. CT scan of your head showed no abnormalities. Your blood work revealed that your kidney numbers were elevated likely due to dehydration or urinary retention. We placed a catheter because he did have urinary retention and you were treated with IV fluids. It is likely that the gabapentin accumulated in your body as it is removed by your kidneys and they were not working as well as usual. You are now back to your baseline. Plan of Treatment: You do not need a catheter at home but if you do develop urinary retention or difficulty urinating then please go to the emergency department because you may need a catheter. Please begin taking Flomax 0.4 mg daily. This is to help you urinate easier. Please stop taking lisinopril. Your blood pressure has been well controlled on just the metoprolol and amlodipine so you do not need the lisinopril. Assessment: The patient and family expressed understanding of the treatment plan. Additional Instructions or Follow Up instructions: Please follow-up with your primary care physician in 1 week. Please return to the emergency department if you develop difficulty urinating or confusion. No Smoking: If you smoke, Please STOP! Call for help. Follow-up with: Fredo Braxton MD [Credentialed Staff Provider] -
--- NOTE | 2021-06-06 14:11 | DISCHARGE SUMMARY ---
Discharge Summary Admit Date: 06/04/21 Discharge Date: 06/06/21 Discharging Provider: Enrique Ayoub Primary Care Provider: Fredo Braxton Condition at Discharge: Stable Discharge Disposition: 01 Home, Self Care - DIAGNOSES Admission Diagnoses: Altered mental status JUANJO A. fib with RVR Diabetes mellitus Hyperlipidemia Urinary retention Discharge Diagnoses with Status of Each Condition: Altered mental status - resolved. JUANJO - resolved. Urinary retention - resolved. Atrial fibrillation - stable. Hypertension - stable. Avascular necrosis of left hip - stable. - HPI History of Present Illness: H&P per Dr. Yadav: 70-year-old male with history of atrial fibrillation on Coumadin who was brought in by EMS after his family called 911. He leaves in his home alone but his daughter lives on the same property. She had not seen him all day and when she checked on him noticed he was having some difficulty speaking and walking. She was concerned about a stroke so had him brought to the ED for evaluation. Patient is not a very good historian at the moment. His speech is mostly unintelligible. Work-up in the ED included a CT of the brain without contrast which was negative for any acute intracranial processes. He was noted to have a creatinine of 2.8. He was also noted to have urinary retention. - HOSPITAL COURSE Hospital Course: He was admitted for altered mental status and acute kidney injury. He was treated with IV fluids and a Edmondson catheter. He had resolution of his acute kidney injury and it was felt that his mentation initially was related to gabapentin toxicity in the setting of somebody who had acute kidney injury. His mental status returned to baseline. The Edmondson catheter was removed and a voiding trial was obtained. He was able to urinate on his own and so he was discharged with a Edmondson catheter. He was asked to return to the emergency depa rtment if he developed urinary difficulties as he may ultimately need a catheter. It was also noted that he was normotensive during his stay without the use of lisinopril and so this was discontinued. He was asked to continue the amlodipine and metoprolol. - ALLERGIES Allergies/Adverse Reactions: Allergies Allergy/AdvReac Type Severity Reaction Status Date / Time No Known Drug Allergies Allergy Verified 03/09/18 02:40 - MEDICATIONS Home Medications: Ambulatory Orders Medication Instructions Recorded Confirmed Warfarin Sodium 5 mg PO DAILY 03/09/18 06/04/21 Buspirone HCl 10 mg PO BID 06/04/21 06/05/21 Cyclobenzaprine [Flexeril] 10 mg PO BID PRN 06/04/21 06/05/21 Metoprolol Succinate 25 mg PO DAILY 06/04/21 06/05/21 Rosuvastatin Calcium [Crestor] 5 mg PO QPM 06/04/21 06/05/21 polyethylene glycoL 3350 17 gm PO DAILY 06/04/21 06/05/21 [Polyethylene Glycol 3350] Amlodipine Besylate [Norvasc] 10 mg PO DAILY 06/05/21 06/05/21 Gabapentin [Neurontin] 300 - 600 mg PO TID 06/05/21 06/05/21 oxyCODONE [Roxicodone] 5 mg PO TID PRN 06/05/21 06/05/21 Tamsulosin [Flomax] 0.4 mg PO DAILY #30 cap 06/06/21 - PHYSICAL EXAM AT DISCHARGE General Appearance: positive: No acute distress, Alert Eyes Bilateral: positive: Normal inspection, Conjunctivae nml ENT: positive: ENT inspection nml Neck: positive: Nml inspection Respiratory: positive: No respiratory distress. negative: Wheezes, Rales Cardiovascular: positive: No murmur, Irregularly irregular. negative: Tachycardia Abdomen: positive: Non-tender, No distention. negative: Tenderness Skin: positive: Warm, Dry Extremities: positive: No pedal edema Neurologic/Psychiatric: positive: Motor nml. negative: Disoriented to person, Disoriented to place, Disoriented to time Physical Exam Other/Comments: Vital Signs - 24 hr 06/05/21 06/06/21 06/06/21 20:35 00:47 04:05 Temperature 36.3 C L 36.5 C 36.6 C Heart Rate [ 84 75 111 H Brachial] Respiratory 20 18 18 Rate Blood Pressure 124/79 125/86 H 131/68 H [Right Brachial artery] O2 Saturation 96 97 94 06/06/21 06/06/21 08:08 12:14 Temperature 36.2 C L 37 C Heart Rate [ 109 H 70 Brachial] Respiratory 18 20 Rate Blood Pressure 107/61 110/72 [Right Brachial artery] O2 Saturation 97 96 Oxygen O2 Source Room air - LABS Result Diagrams: 06/06/21 05:00 06/06/21 05:00 - FOLLOW UP Follow Up: He was asked to follow-up with his primary care physician in 1 week. He was asked to discontinue the lisinopril. He was also asked to return to the emergency department if he develop urinary retention or difficulty urinating. - TIME SPENT Time Spent in Discharge (Minutes): 34
== END 2021-06-06 14:55 | disposition home or self-care (01) | DRG 683 ==
LOC: EDUNIT# → ED 17:41 → MS3 20:04 → OBSVTOIN 06-05 10:37
PROVIDERS: ADMIT Internal Medicine; ATTEND Internal Medicine
DX: N17.9 Acute kidney failure, unspecified (principal); M87.9 Osteonecrosis, unspecified; R41.82 Altered mental status, unspecified; R33.9 Retention of urine, unspecified; R47.81 Slurred speech; R27.0 Ataxia, unspecified; I10 Essential (primary) hypertension; I48.91 Unspecified atrial fibrillation; E11.40 Type 2 diabetes mellitus with diabetic neuropathy, unspecified; E78.00 Pure hypercholesterolemia, unspecified; Z20.822 Contact with and (suspected) exposure to COVID-19; F17.210 Nicotine dependence, cigarettes, uncomplicated; Z79.01 Long term (current) use of anticoagulants; Z79.84 Long term (current) use of oral hypoglycemic drugs; Z79.899 Other long term (current) drug therapy
CPT/HCPCS: 36415; 51702; 51798; 70450; 80048; 80053; 80306; 82140; 82550; 83690; 83735; 84443; 85025; 85610; 87631; 93005; 96374; 96375; 96376; 97116; 97162; 99285; 99291; A9270; G0480; 0202U; 80320

== ENCOUNTER 2021-06-15 11:28 | Outpatient (CLI) | payer MEDICARE, OTHER | END 2021-06-15 11:29 | disposition home or self-care (01) | LOC: LAB.S 11:28 | PROVIDERS: ATTEND Internal Medicine Cardiovascular Disease | DX: I48.0 Paroxysmal atrial fibrillation (principal) | CPT/HCPCS: 36416; 85610 ==

== ENCOUNTER 2021-06-23 10:07 | Outpatient (CLI) | payer MEDICARE, OTHER | END 2021-06-23 10:08 | disposition home or self-care (01) | LOC: LAB.S 10:07 | PROVIDERS: ATTEND Internal Medicine Cardiovascular Disease | DX: I48.0 Paroxysmal atrial fibrillation (principal) | CPT/HCPCS: 36416; 85610 ==

== ENCOUNTER 2021-07-08 10:02 | Outpatient (CLI) | payer MEDICARE, OTHER | END 2021-07-08 10:03 | disposition home or self-care (01) | LOC: LAB.S 10:02 | PROVIDERS: ATTEND Internal Medicine Cardiovascular Disease | DX: I48.0 Paroxysmal atrial fibrillation (principal); Z51.81 Encounter for therapeutic drug level monitoring; Z79.01 Long term (current) use of anticoagulants | CPT/HCPCS: 36416; 85610 ==

== ENCOUNTER 2021-07-19 13:56 | Outpatient (CLI) | payer MEDICARE, OTHER | END 2021-07-19 13:57 | disposition home or self-care (01) | LOC: LAB.S 13:56 | PROVIDERS: ATTEND Internal Medicine Cardiovascular Disease | DX: I48.0 Paroxysmal atrial fibrillation (principal); Z51.81 Encounter for therapeutic drug level monitoring; Z79.01 Long term (current) use of anticoagulants | CPT/HCPCS: 36416; 85610 ==

== ENCOUNTER 2021-08-04 13:29 | Outpatient (CLI) | payer MEDICARE, OTHER | END 2021-08-04 13:30 | disposition home or self-care (01) | LOC: LAB.S 13:29 | PROVIDERS: ATTEND Internal Medicine Cardiovascular Disease | DX: I48.0 Paroxysmal atrial fibrillation (principal); Z51.81 Encounter for therapeutic drug level monitoring; Z79.01 Long term (current) use of anticoagulants | CPT/HCPCS: 36416; 85610 ==

== ENCOUNTER 2021-08-12 10:21 | Day surgery (SDC) | payer MEDICARE, OTHER ==
[2021-08-12] MEDS ORDERED: LACTATED RINGERS 1,000 ML IV ONE ×2 (10:39→11:55)
[2021-08-12] MEDS ORDERED: PROPOFOL 200 MG/20 ML VIAL IVP ONE ×2 (10:40→11:51)
--- NOTE | 2021-08-12 10:59 | ANESTHESIA ---
Pre-Anesthesia VS, & Labs - Diagnosis hx of polyps - Procedure colonoscopy Vital Signs: Temp Pulse Resp BP Pulse Ox 36.3 C L 70 18 130/96 H 95 08/12/21 10:30 08/12/21 10:30 08/12/21 10:30 08/12/21 10:30 08/12/21 10:30 Height: 5 ft 11 in Weight (kg): 111 kg Body Mass Index: 34.1 BMI Classification: Obese - NPO >8 hours Home Medications and Allergies Home Medications: Ambulatory Orders Lisinopril [Zestril] 40 mg PO DAILY 08/08/21 Warfarin Sodium 5 mg PO DAILY 03/09/18 Cyclobenzaprine [Flexeril] 10 mg PO BID PRN 06/04/21 Metoprolol Succinate 25 mg PO DAILY 06/04/21 Rosuvastatin Calcium [Crestor] 5 mg PO QPM 06/04/21 Amlodipine Besylate [Norvasc] 10 mg PO DAILY 06/05/21 Gabapentin [Neurontin] 300 - 600 mg PO TID 06/05/21 Lisinopril [Zestril] 40 mg PO DAILY 08/08/21 Allergies/Adverse Reactions: Allergies Allergy/AdvReac Type Severity Reaction Status Date / Time latex Allergy Rash Verified 08/12/21 10:53 Anes History & Medical History - Anesthetic History Anesthesia Complications: reports: No previous complications Family history of Anesthesia Complications: Denies Family history of Malignant Hyperthermia: Denies - Medical History Cardiovascular: reports: Hypertension, High cholesterol, Atrial fibrillation Pulmonary: reports: Sleep apnea Gastrointestinal: reports: Colon polyps Urinary: reports: Benign prostate hypertrophy, Nocturia Neuro: reports: Other (Diabetic Neuropathy) Musculoskeletal: reports: Chronic back pain Endocrine/Autoimmune: reports: Type 2 diabetes Blood Disorders: reports: None Skin: reports: None Smoking Status: Former smoker - Surgical History General: reports: Cholecystectomy, Colonoscopy, Other Orthopedic: reports: Arthroscopic surgery, Other Exam General: Alert, Oriented x3, Cooperative Dental: WNL Mouth Opening: Greater than 4 Fingerbreadths Neck Mobility: Normal Mallampati classification: I Thyromental Distance: 4-6 cm Respiratory: Lungs clear Cardiovascular: Regular rate Plan Anesthesia Type: Total IV Consent for Procedure(s) Verified and Reviewed: Yes Code Status: Attempt Resuscitation ASA classification: 3-Severe systemic disease Is this case an emergency?: No
--- NOTE | 2021-08-12 12:38 | ANESTHESIA POST OP EVALUATION ---
Anesthesia Post Eval - Post Anesthesia Eval Vitals: Last Vital Signs Temp 96.5 C H 08/12/21 12:20 Pulse 65 08/12/21 12:25 Resp 12 08/12/21 12:25 BP 120/82 H 08/12/21 12:25 Pulse Ox 98 08/12/21 12:25 CV Function Including HR & BP: Stable Pain Control: Satisfactory Nausea & Vomiting: Negative Mental Status: Baseline Respiratory Status: Airway Patent Hydration Status: Satisfactory Anesthesia Complications: None
[2021-08-12 12:42] VITALS: BP 136/82
== END 2021-08-12 10:22 | disposition home or self-care (01) ==
LOC: SDS 10:21
PROVIDERS: ATTEND Surgery
PROC: 0DBK8ZZ Excision of Ascending Colon, Via Natural or Artificial Opening Endoscopic (ICD-10-PCS; 2021-08-12)
PROC: 0DBL8ZZ Excision of Transverse Colon, Via Natural or Artificial Opening Endoscopic (ICD-10-PCS; 2021-08-12)
PROC: 0DBH8ZZ Excision of Cecum, Via Natural or Artificial Opening Endoscopic (ICD-10-PCS; 2021-08-12)
PROC: 0DBN8ZZ Excision of Sigmoid Colon, Via Natural or Artificial Opening Endoscopic (ICD-10-PCS; principal; 2021-08-12 11:30)
DX: Z12.11 Encounter for screening for malignant neoplasm of colon (principal); Z85.040 Personal history of malignant carcinoid tumor of rectum; D12.5 Benign neoplasm of sigmoid colon; D12.0 Benign neoplasm of cecum; D12.2 Benign neoplasm of ascending colon; D12.3 Benign neoplasm of transverse colon; I48.0 Paroxysmal atrial fibrillation; G47.30 Sleep apnea, unspecified; Z87.891 Personal history of nicotine dependence; E66.9 Obesity, unspecified; Z68.34 Body mass index [BMI] 34.0-34.9, adult; E11.9 Type 2 diabetes mellitus without complications
CPT/HCPCS: 45380; 45385; J7120

== ENCOUNTER 2021-08-17 08:42 | Outpatient (CLI) | payer MEDICARE, OTHER ==
[2021-08-17 15:19] LABS: BASOPHILS % (AUTO) 0.6 %; EOSINOPHILS # (AUTO) 0.2 10^3/uL (0.0-0.7); EOSINOPHILS % (AUTO) 2.7 %; HCT - HEMATOCRIT 45.1 % (42.0-52.0); HGB - HEMOGLOBIN 15.1 g/dL (14.0-18.0); LYMPHOCYTES # (AUTO) 2.5 10^3/uL (1.5-3.5); LYMPHOCYTES % (AUTO) 35.1 %; MEAN CORPUSCULAR HEMOGLOBIN 30.1 pg (27.0-31.0); MEAN CORPUSCULAR HGB CONC 33.5 g/dL (32.0-36.0); MEAN PLATELET VOLUME 10.3 fL (7.4-11.4); MONOCYTES # (AUTO) 0.7 10^3/uL (0.0-1.0); MONOCYTES % (AUTO) 10.1 %; NEUTROPHILS # (AUTO) 3.6 10^3/uL (1.5-6.6); NEUTROPHILS % (AUTO) 51.4 %; PLT - PLATELET COUNT 243 10^3/uL (130-450); RED BLOOD COUNT 5.01 10^6/uL (4.70-6.10); RED CELL DISTRIBUTION WIDTH 14.1 % (12.0-15.0)
[2021-08-17 20:39] LABS: ESTIMATED AVERAGE GLUCOSE 203 mg/dL (70-100); HEMOGLOBIN A1c% 8.7 % (4.27-6.07)
== END 2021-08-17 08:43 | disposition home or self-care (01) ==
LOC: LAB.S 08:42
PROVIDERS: ATTEND Internal Medicine Cardiovascular Disease
DX: M51.16 Intervertebral disc disorders with radiculopathy, lumbar region (principal); E11.9 Type 2 diabetes mellitus without complications; I48.0 Paroxysmal atrial fibrillation; Z51.81 Encounter for therapeutic drug level monitoring; Z79.01 Long term (current) use of anticoagulants
CPT/HCPCS: 36415; 81599; 83036; 84145; 85025; 85610; 85651; 86140

== ENCOUNTER 2021-08-25 08:37 | Outpatient (CLI) | payer MEDICARE, OTHER | END 2021-08-25 08:38 | disposition home or self-care (01) | LOC: LAB.S 08:37 | PROVIDERS: ATTEND Internal Medicine Cardiovascular Disease | DX: I48.0 Paroxysmal atrial fibrillation (principal); Z51.81 Encounter for therapeutic drug level monitoring; Z79.01 Long term (current) use of anticoagulants | CPT/HCPCS: 36416; 85610 ==

== ENCOUNTER 2021-09-20 16:47 | Outpatient (CLI) | payer MEDICARE, OTHER | END 2021-09-20 16:48 | disposition home or self-care (01) | LOC: LAB.S 16:47 | PROVIDERS: ATTEND Internal Medicine Cardiovascular Disease | DX: I48.0 Paroxysmal atrial fibrillation (principal); Z51.81 Encounter for therapeutic drug level monitoring; Z79.01 Long term (current) use of anticoagulants | CPT/HCPCS: 36416; 85610 ==

== ENCOUNTER 2021-10-20 11:46 | Outpatient (CLI) | payer MEDICARE, OTHER | END 2021-10-20 11:47 | disposition home or self-care (01) | LOC: LAB.S 11:46 | PROVIDERS: ATTEND Internal Medicine Cardiovascular Disease | DX: I48.0 Paroxysmal atrial fibrillation (principal); Z51.81 Encounter for therapeutic drug level monitoring; Z79.01 Long term (current) use of anticoagulants | CPT/HCPCS: 36416; 85610 ==

== ENCOUNTER 2021-11-19 14:38 | Outpatient (CLI) | payer MEDICARE, OTHER | END 2021-11-19 14:39 | disposition home or self-care (01) | LOC: LAB.S 14:38 | PROVIDERS: ATTEND Internal Medicine Cardiovascular Disease | DX: I48.0 Paroxysmal atrial fibrillation (principal); Z51.81 Encounter for therapeutic drug level monitoring; Z79.01 Long term (current) use of anticoagulants | CPT/HCPCS: 36416; 85610 ==

== ENCOUNTER 2021-11-29 12:31 | Outpatient (CLI) | payer MEDICARE, OTHER ==
--- NOTE | 2021-11-30 23:53 | MRI Report ---
PROCEDURE: Lumbar Spine W/O INDICATIONS: INTERVERTEBRAL DISC DISORDERS W RADICULOPATHY, LUM TECHNIQUE: Noncontrast sagittal T1 spin echo and T2 fast echo, sagittal STIR, axial T1 and T2 fast spin echo thr ough the lumbar spine. In cases with scoliosis, additional coronal T2 fast spin echo may be performe d. COMPARISON: None. FINDINGS: Image quality: Excellent. Alignment and Curvature: There is normal bony alignment. Bone Marrow: Marrow is of normal overall signal. No acute vertebral body compression fractures. Spinal Cord: Conus medullaris terminates at the normal level. Visualized cord demonstrates normal s ignal and size. Regional Soft Tissues: No paravertebral masses. T12-L1: No spinal canal or neural foraminal stenosis. L1-L2: No spinal canal or neural foraminal stenosis. Mild facet hypertrophy. L2-L3: No spinal canal or neural foraminal stenosis. Mild facet hypertrophy. L3-L4: Disc bulge flattens the ventral thecal sac without mass effect upon the traversing L4 nerve roots. No neural foraminal stenosis. Mild facet hypertrophy. L4-L5: Moderate spinal canal stenosis and severe subarticular zone stenosis due to diffuse disc bul ge with a superimposed broad-based posterior disc protrusion as well as a focal extrusion in the left subarticular zone. There is suspected impingement of the descending left L5 nerve roots within the l eft subarticular zone disc material. Foraminal components of the disc bulge and facet hypertrophy com bine to produce moderate bilateral neural foraminal stenosis. L5-S1: Diffuse disc bulge mildly displaces the descending S1 nerve roots in both subarticular zones . There is moderate bilateral neural foraminal stenosis. IMPRESSION: Lower lumbar spine degenerative changes worst at L4-L5 where there is moderate spinal canal stenosis and severe subarticular zone stenosis. Suspect impingement of the descending left L5 nerve roots with in the left subarticular zone due to disc extrusion. Reviewed by: Davide Del Cid MD on 11/30/2021 11:56 PM PDT Approved by: Davide Del Cid MD on 11/30/2021 11:56 PM PDT Station ID: [id number]
== END 2021-11-29 12:32 | disposition home or self-care (01) ==
LOC: DI 12:31
PROVIDERS: ATTEND Neurological Surgery
DX: M47.26 Other spondylosis with radiculopathy, lumbar region (principal); M47.27 Other spondylosis with radiculopathy, lumbosacral region; M48.07 Spinal stenosis, lumbosacral region; M48.061 Spinal stenosis, lumbar region without neurogenic claudication

== ENCOUNTER 2022-02-09 10:08 | Outpatient (CLI) | payer MEDICARE, OTHER | END 2022-02-09 10:09 | disposition home or self-care (01) | LOC: LAB.S 10:08 | PROVIDERS: ATTEND Internal Medicine Cardiovascular Disease | DX: I48.0 Paroxysmal atrial fibrillation (principal); Z51.81 Encounter for therapeutic drug level monitoring; Z79.01 Long term (current) use of anticoagulants | CPT/HCPCS: 36416; 85610 ==

== ENCOUNTER 2022-03-09 09:00 | Outpatient (CLI) | payer MEDICARE, OTHER | END 2022-03-09 09:01 | disposition home or self-care (01) | LOC: NS 09:00 | PROVIDERS: ATTEND Internal Medicine | DX: E11.9 Type 2 diabetes mellitus without complications (principal); Z71.3 Dietary counseling and surveillance; Z71.89 Other specified counseling; Z79.84 Long term (current) use of oral hypoglycemic drugs | CPT/HCPCS: 97802 ==

== ENCOUNTER 2022-03-22 11:31 | Outpatient (CLI) | payer MEDICARE, OTHER | END 2022-03-22 11:32 | disposition home or self-care (01) | LOC: LAB.S 11:31 | PROVIDERS: ATTEND Internal Medicine Cardiovascular Disease | DX: I48.0 Paroxysmal atrial fibrillation (principal); Z51.81 Encounter for therapeutic drug level monitoring; Z79.01 Long term (current) use of anticoagulants | CPT/HCPCS: 36416; 85610 ==

== ENCOUNTER 2022-03-23 10:27 | Outpatient (CLI) | payer MEDICARE, OTHER | END 2022-03-23 10:28 | disposition home or self-care (01) | LOC: NS 10:27 | PROVIDERS: ATTEND Internal Medicine | DX: E11.9 Type 2 diabetes mellitus without complications (principal); Z71.3 Dietary counseling and surveillance; Z71.89 Other specified counseling; Z79.84 Long term (current) use of oral hypoglycemic drugs; Z68.34 Body mass index [BMI] 34.0-34.9, adult | CPT/HCPCS: 97803 ==

== ENCOUNTER 2022-05-02 09:18 | Outpatient (CLI) | payer MEDICARE, OTHER | END 2022-05-02 09:19 | disposition home or self-care (01) | LOC: LAB.S 09:18 | PROVIDERS: ATTEND Internal Medicine Cardiovascular Disease | DX: I48.0 Paroxysmal atrial fibrillation (principal); Z51.81 Encounter for therapeutic drug level monitoring; Z79.01 Long term (current) use of anticoagulants | CPT/HCPCS: 36416; 85610 ==

== ENCOUNTER 2022-05-09 09:54 | Outpatient (CLI) | payer MEDICARE, OTHER | END 2022-05-09 09:55 | disposition home or self-care (01) | LOC: NS 09:54 | PROVIDERS: ATTEND Registered Nurse | DX: E11.9 Type 2 diabetes mellitus without complications (principal); Z71.3 Dietary counseling and surveillance; Z71.89 Other specified counseling; Z79.84 Long term (current) use of oral hypoglycemic drugs; Z68.34 Body mass index [BMI] 34.0-34.9, adult | CPT/HCPCS: 97803 ==

== ENCOUNTER 2022-05-18 12:36 | Outpatient (CLI) | payer MEDICARE, OTHER | END 2022-05-18 12:37 | disposition home or self-care (01) | LOC: LAB.S 12:36 | PROVIDERS: ATTEND Internal Medicine Cardiovascular Disease | DX: I48.0 Paroxysmal atrial fibrillation (principal); Z79.01 Long term (current) use of anticoagulants; Z51.81 Encounter for therapeutic drug level monitoring | CPT/HCPCS: 36416; 85610 ==

== ENCOUNTER 2022-06-13 14:12 | Outpatient (CLI) | payer MEDICARE, OTHER ==
[2022-06-13 20:01] LABS: CALCIUM 9.5 mg/dL (8.5-10.3); CREATININE 1.1 mg/dL (0.6-1.2); POTASSIUM 4.1 mmol/L (3.5-5.0)
[2022-06-13 20:07] LABS: CREATININE,URINE 70.1 mg/dL; MICROALBUM/CREATININE RATIO,UR 7.1 ug/mg (<30.0); MICROALBUMIN,URINE 0.5 mg/dL (0-300.0)
[2022-06-13 20:59] LABS: ESTIMATED AVERAGE GLUCOSE 192 mg/dL (70-100); HEMOGLOBIN A1c% 8.3 % (4.27-6.07)
== END 2022-06-13 14:13 | disposition home or self-care (01) ==
LOC: LAB.S 14:12
PROVIDERS: ATTEND Internal Medicine Cardiovascular Disease
DX: I48.0 Paroxysmal atrial fibrillation (principal); Z51.81 Encounter for therapeutic drug level monitoring; Z79.01 Long term (current) use of anticoagulants; E11.9 Type 2 diabetes mellitus without complications
CPT/HCPCS: 36415; 36416; 80048; 82043; 82570; 83036; 85610

== ENCOUNTER 2022-07-12 11:20 | Outpatient (CLI) | payer MEDICARE, OTHER | END 2022-07-12 11:21 | disposition home or self-care (01) | LOC: LAB.S 11:20 | PROVIDERS: ATTEND Internal Medicine Cardiovascular Disease | DX: I48.0 Paroxysmal atrial fibrillation (principal); Z51.81 Encounter for therapeutic drug level monitoring; Z79.01 Long term (current) use of anticoagulants | CPT/HCPCS: 36416; 85610 ==

== ENCOUNTER 2022-07-28 10:04 | Outpatient (CLI) | payer MEDICARE, OTHER | END 2022-07-28 10:05 | disposition home or self-care (01) | LOC: LAB.S 10:04 | PROVIDERS: ATTEND Internal Medicine Cardiovascular Disease | DX: I48.0 Paroxysmal atrial fibrillation (principal); Z51.81 Encounter for therapeutic drug level monitoring; Z79.01 Long term (current) use of anticoagulants | CPT/HCPCS: 36416; 85610 ==

== ENCOUNTER 2022-08-18 08:53 | Outpatient (CLI) | payer MEDICARE, OTHER | END 2022-08-18 08:54 | disposition home or self-care (01) | LOC: LAB.S 08:53 | PROVIDERS: ATTEND Internal Medicine Cardiovascular Disease | DX: I48.0 Paroxysmal atrial fibrillation (principal); Z51.81 Encounter for therapeutic drug level monitoring; Z79.01 Long term (current) use of anticoagulants | CPT/HCPCS: 36416; 85610 ==

== ENCOUNTER 2022-09-08 10:50 | Outpatient (CLI) | payer MEDICARE, OTHER | END 2022-09-08 10:51 | disposition home or self-care (01) | LOC: LAB.S 10:50 | PROVIDERS: ATTEND Internal Medicine Cardiovascular Disease | DX: I48.0 Paroxysmal atrial fibrillation (principal); Z51.81 Encounter for therapeutic drug level monitoring; Z79.01 Long term (current) use of anticoagulants | CPT/HCPCS: 36416; 85610 ==

== ENCOUNTER 2022-10-05 12:45 | Outpatient (CLI) | payer MEDICARE, OTHER | END 2022-10-05 12:46 | disposition home or self-care (01) | LOC: LAB.S 12:45 | PROVIDERS: ATTEND Internal Medicine Cardiovascular Disease | DX: I48.0 Paroxysmal atrial fibrillation (principal); Z51.81 Encounter for therapeutic drug level monitoring; Z79.01 Long term (current) use of anticoagulants | CPT/HCPCS: 36416; 85610 ==

== ENCOUNTER 2022-10-10 11:25 | Outpatient (CLI) | payer MEDICARE, OTHER ==
[2022-10-10 20:49] LABS: ESTIMATED AVERAGE GLUCOSE 163 mg/dL (70-100); HEMOGLOBIN A1c% 7.3 % (4.27-6.07)
== END 2022-10-10 11:26 | disposition home or self-care (01) ==
LOC: LAB.S 11:25
PROVIDERS: ATTEND Registered Nurse
DX: E11.9 Type 2 diabetes mellitus without complications (principal); I48.0 Paroxysmal atrial fibrillation; Z51.81 Encounter for therapeutic drug level monitoring; Z79.01 Long term (current) use of anticoagulants
CPT/HCPCS: 36415; 83036; 85610

== ENCOUNTER 2022-11-09 09:35 | Outpatient (CLI) | payer MEDICARE, OTHER | END 2022-11-09 09:36 | disposition home or self-care (01) | LOC: LAB.S 09:35 | PROVIDERS: ATTEND Internal Medicine Cardiovascular Disease | DX: I48.0 Paroxysmal atrial fibrillation (principal); Z51.81 Encounter for therapeutic drug level monitoring; Z79.01 Long term (current) use of anticoagulants | CPT/HCPCS: 36416; 85610 ==

== ENCOUNTER 2022-11-15 08:26 | Outpatient (CLI) | payer MEDICARE, OTHER ==
[2022-11-15 15:58] LABS: ESTIMATED AVERAGE GLUCOSE 140 mg/dL (70-100); HEMOGLOBIN A1c% 6.5 % (4.27-6.07)
== END 2022-11-15 08:27 | disposition home or self-care (01) ==
LOC: LAB.S 08:26
PROVIDERS: ATTEND Internal Medicine Cardiovascular Disease
DX: I48.0 Paroxysmal atrial fibrillation (principal); Z51.81 Encounter for therapeutic drug level monitoring; Z79.01 Long term (current) use of anticoagulants; E11.9 Type 2 diabetes mellitus without complications
CPT/HCPCS: 36415; 83036; 85610

== ENCOUNTER 2022-11-17 06:03 | Day surgery (SDC) | payer MEDICARE, OTHER ==
[2022-11-17] MEDS ORDERED: LACTATED RINGERS 1,000 ML IV ONE (06:22)
--- NOTE | 2022-11-17 07:02 | ANESTHESIA ---
Pre-Anesthesia VS, & Labs - Diagnosis trouble swallowing - Procedure egd Vital Signs: Temp Pulse Resp BP Pulse Ox O2 Flow Rate 36.1 C L 92 20 158/102 H 93 11/17/22 06:23 11/17/22 06:23 11/17/22 06:23 11/17/22 06:23 11/17/22 06:23 Height: 5 ft 11 in Weight (kg): 105 kg Body Mass Index: 32.3 BMI Classification: Obese - NPO >8 hours - Lab Results Current Lab Results: Laboratory Tests 11/17/22 06:45: POC Whole Bld Glucose 128 H Lab results reviewed: Yes Home Medications and Allergies Home Medications: Ambulatory Orders Acetaminophen [Tylenol] 650 mg PO Q6H PRN 11/16/22 Multivitamin 1 each PO DAILY 11/16/22 glipiZIDE [Glipizide] 10 mg PO DAILY 11/16/22 Warfarin Sodium 5 mg PO DAILY 03/09/18 Cyclobenzaprine [Flexeril] 10 mg PO BID PRN 06/04/21 Metoprolol Succinate 25 mg PO DAILY 06/04/21 Rosuvastatin Calcium [Crestor] 5 mg PO QPM 06/04/21 Amlodipine Besylate [Norvasc] 10 mg PO DAILY 06/05/21 Gabapentin [Neurontin] 300 - 600 mg PO TID PRN 06/05/21 Lisinopril [Zestril] 40 mg PO DAILY 08/08/21 Acetaminophen [Tylenol] 650 mg PO Q6H PRN 11/16/22 Multivitamin 1 each PO DAILY 11/16/22 glipiZIDE [Glipizide] 10 mg PO DAILY 11/16/22 Allergies/Adverse Reactions: Allergies Allergy/AdvReac Type Severity Reaction Status Date / Time latex Allergy Rash Verified 08/12/21 10:53 Anes History & Medical History - Anesthetic History Anesthesia Complications: reports: No previous complications Family history of Anesthesia Complications: Denies Family history of Malignant Hyperthermia: Denies - Medical History Cardiovascular: reports: Hypertension, High cholesterol, Atrial fibrillation Pulmonary: reports: Sleep apnea Gastrointestinal: reports: Colon polyps Urinary: reports: Benign prostate hypertrophy, Nocturia Neuro: reports: Other (Diabetic Neuropathy) Musculoskeletal: reports: Chronic back pain Endocrine/Autoimmune: reports: Type 2 diabetes Blood Disorders: reports: None Skin: reports: None Smoking Status: Former smoker History of Cancer?: No - Surgical History General: reports: Cholecystectomy, Colonoscopy, Other Cardiothoracic: reports: Other (ablation for AF 6 mos ago) Orthopedic: reports: Arthroscopic surgery, Other Exam General: Alert, Oriented x3, Cooperative Dental: WNL Mouth Openin Fingerbreadth Neck Mobility: Normal Mallampati classification: II Thyromental Distance: 4-6 cm Respiratory: Normal breath sounds Cardiovascular: Regular rate Neurological: Normal speech Mental/Cognitive Status: Alert/Oriented X3, Normal for patient Cognitive Status: Within normal limits Plan Anesthesia Type: Total IV Consent for Procedure(s) Verified and Reviewed: Yes Code Status: Attempt Resuscitation ASA classification: 3-Severe systemic disease Is this case an emergency?: No
[2022-11-17] MEDS ORDERED: PROPOFOL 200 MG/20 ML VIAL IVP ONE ×3 (07:20→07:48)
--- NOTE | 2022-11-17 07:24 | HISTORY & PHYSICAL EXAMINATION ---
Chief Complaint - Chief Complaint Chief Complaint: trouble swallowing History of Present Illness - History Obtained From Records Reviewed: yes History obtained from: pt Exam Limitations: none - History of Present Illness HPI Comment/Other: trouble swallowing for 3 months. pills can come back up. getting worse. History - Past Medical History Cardiovascular: reports: Hypertension, High cholesterol, Atrial fibrillation Respiratory: reports: Sleep apnea Neuro: reports: Other (Diabetic Neuropathy) Endocrine/Autoimmune: reports: Type 2 diabetes GI: reports: Colon polyps : reports: Benign prostate hypertrophy, Nocturia HEENT: reports: Chronic vision loss Psych: reports: Depression Musculoskeletal: reports: Chronic back pain Derm: reports: None MRSA Hx?: No - Past Surgical History General: reports: Cholecystectomy, Colonoscopy, Other Ortho: reports: Arthroscopic surgery, Other Cardiovascular: reports: Other (ablation for AF 6 mos ago) - Family & Social History Family History Comment/Other: Family history is currently limited due to patient's altered mental status. Social History Notes: Lives in his home alone. However he lives on the same property as his daughter. Smokes about 3 cigarettes daily. Occasionally consumes alcohol. Occasional marijuana use. - POLST Patient has POLST: No POLST Status: Full Code Meds/Allgy - Home Medications Home Medications: Ambulatory Orders Medication Instructions Recorded Confirmed Warfarin Sodium 5 mg PO DAILY 03/09/18 11/16/22 Cyclobenzaprine [Flexeril] 10 mg PO BID PRN 06/04/21 11/16/22 Metoprolol Succinate 25 mg PO DAILY 06/04/21 11/16/22 Rosuvastatin Calcium [Crestor] 5 mg PO QPM 06/04/21 11/16/22 Amlodipine Besylate [Norvasc] 10 mg PO DAILY 06/05/21 11/16/22 Gabapentin [Neurontin] 300 - 600 mg PO TID PRN 06/05/21 11/16/22 Lisinopril [Zestril] 40 mg PO DAILY 08/08/21 11/16/22 Acetaminophen [Tylenol] 650 mg PO Q6H PRN 11/16/22 11/16/22 Multivitamin 1 each PO DAILY 11/16/22 11/16/22 glipiZIDE [Glipizide] 10 mg PO DAILY 11/16/22 11/16/22 - Allergies Allergies/Adverse Reactions: Allergies Allergy/AdvReac Type Severity Reaction Status Date / Time latex Allergy Rash Verified 08/12/21 10:53 Review of Systems - Other Findings Other Findings: 10 pt ros as above otherwise unremarkable Exam - Vital Signs Reviewed Vital Signs: Yes Vital Signs: Vital Signs x48h Temp Pulse Resp BP Pulse Ox 11/17/22 06:23 36.1 C L 92 20 158/102 H 93 - Physical Exam General Appearance: positive: No acute distress, Alert Eyes Bilateral: positive: PERRL, EOMI, No scleral icterus ENT: positive: No signs of dehydration Neck: positive: No JVD, Trachea midline Respiratory: positive: No respiratory distress Cardiovascular: positive: Regular rate & rhythm Abdomen: positive: Non-tender, No distention Neurologic/Psychiatric: positive: Oriented x3 Conclusion/Plan - Problem List (1) Trouble swallowing Conclusion/Plan: plan egd with biopsies. parq held and consent obtained - Lab Results Lab results reviewed: Yes
[2022-11-17] MEDS ORDERED: LACTATED RINGERS 400 ML IV ONE (08:00)
--- NOTE | 2022-11-17 08:29 | ANESTHESIA POST OP EVALUATION ---
Anesthesia Post Eval - Post Anesthesia Eval Vitals: Last Vital Signs Temp 36.8 C 11/17/22 08:12 Pulse 81 11/17/22 08:12 Resp 21 11/17/22 08:12 BP 132/91 H 11/17/22 08:12 Pulse Ox 94 11/17/22 08:12 O2 Flow Rate CV Function Including HR & BP: Stable Pain Control: Satisfactory Nausea & Vomiting: Negative Mental Status: Baseline Respiratory Status: Airway Patent Hydration Status: Satisfactory Anesthesia Complications: None
[2022-11-17] MEDS ORDERED: iohexoL-300 100 ML VIAL ONE (08:36)
[2022-11-17] MEDS ORDERED: iohexoL-300 100 ML VIAL IVP ONE (09:46)
[2022-11-17 09:50] VITALS: BP 134/92
--- NOTE | 2022-11-17 10:31 | CT Report ---
PROCEDURE: CHEST W INDICATIONS: mass esophagus CONTRAST: 100ml omni 300 TECHNIQUE: After the administration of intravenous contrast, 1 mm axial images were acquired from the pulmonary apices through the posterior costophrenic angles. Axial 5 mm soft tissue kernel reconstructions were performed as well as 8 mm axial MIP and coronal and sagittal 5 mm reformations. For radiation dose reduction, the following was used: automated exposure control, adjustment of mA and/or kV according to patient size. COMPARISON: None. FINDINGS: Image quality: Excellent. Lungs and pleura: No consolidation. No pleural effusions. No pneumothorax. 3 to 4 mm solid nodule, r ight middle lobe (series 4, image 109) Mediastinum: Heart size is enlarged. No pericardial effusion. No large vessel abnormality. Moderate c oronary calcifications for age. 6.7 cm segment of marked esophageal wall thickening. There is irregul arity of the external wall, probably indicating extension beyond the wall. Enlarged 1.0 cm short axis paraesophageal node (series 3, image 12). Chest wall and lower neck: Thyroid is unremarkable. Borderline enlarged left supraclavicular fossa no de measuring 8 mm short axis (series 3, image 71). Bones: No aggressive osseous abnormality. Upper Abdomen: Unremarkable. IMPRESSION: 6.7 cm segment of marked esophageal wall thickening. There is irregularity of the external wall, prob ably indicating extension beyond the wall. Enlarged paraesophageal lymph node and borderline enlarged left supraclavicular fossa node, concernin g for lorelei disease. 3-4 mm solid nodule in the right middle lobe, indeterminate in the setting of malignancy. Reviewed by: Norberto Santamaria on 11/17/2022 10:30 AM PDT Approved by: Norberto Santamaria on 11/17/2022 10:30 AM PDT Station ID: [id number]
--- NOTE | 2022-11-17 10:33 | CT Report ---
PROCEDURE: SOFT TISSUE NECK W INDICATIONS: mass esophagus CONTRAST: 100ml omni 300 TECHNIQUE: After the administration of intravenous contrast, 3.0 mm axial sections acquired from the sella to th e aortic arch. Additional oblique axial 3.0 mm sections acquired through the pharynx. 3 mm thick co red reformats were generated. For radiation dose reduction, the following was used: automated exp osure control, adjustment of mA and/or kV according to patient size. COMPARISON: None. FINDINGS: Image quality: Excellent. Lymph nodes: Enlarged left supra clavicular fossa node measuring 8 to 9 mm short axis (series 2, imag e 117). Vessels: Visualized vasculature appears patent. Neck spaces: The oropharynx, nasopharynx, and pharynx demonstrate no mucosal lesions. The vocal cor ds, false vocal cords, pyriform sinuses, epiglottis, vallecula, and tongue base all appear normal. E xtramucosal spaces appear unremarkable. Glands: The parotid and submandibular glands appear normal. The thyroid is normal in size and there are no incidental findings. Miscellaneous: Please see dedicated chest CT for further discussion regarding the esophageal mass. Bones: No suspicious bony lesions. Visualized sinuses and mastoids appear unremarkable. IMPRESSION: Enlarged left supraclavicular fossa node measuring 8 9 mm short axis, concerning for lorelei disease. Please see dedicated chest CT for further discussion regarding the esophageal mass. Reviewed by: Norberto Santamaria on 11/17/2022 10:31 AM PDT Approved by: Norberto Santamaria on 11/17/2022 10:31 AM PDT Station ID: [id number]
== END 2022-11-17 06:04 | disposition home or self-care (01) ==
LOC: SDS 06:03
PROVIDERS: ATTEND Surgery
PROC: 0DB68ZX Excision of Stomach, Via Natural or Artificial Opening Endoscopic, Diagnostic (ICD-10-PCS; 2022-11-17)
PROC: 0DB18ZX Excision of Upper Esophagus, Via Natural or Artificial Opening Endoscopic, Diagnostic (ICD-10-PCS; 2022-11-17)
PROC: 0DB98ZX Excision of Duodenum, Via Natural or Artificial Opening Endoscopic, Diagnostic (ICD-10-PCS; principal; 2022-11-17 07:30)
DX: C15.3 Malignant neoplasm of upper third of esophagus (principal); K29.80 Duodenitis without bleeding; E66.9 Obesity, unspecified; Z68.32 Body mass index [BMI] 32.0-32.9, adult; I48.91 Unspecified atrial fibrillation; G47.30 Sleep apnea, unspecified; E11.40 Type 2 diabetes mellitus with diabetic neuropathy, unspecified; Z79.84 Long term (current) use of oral hypoglycemic drugs; F17.210 Nicotine dependence, cigarettes, uncomplicated
CPT/HCPCS: 36415; 43239; 70491; 71260; 82550; J7120; Q9967

== ENCOUNTER 2022-11-27 09:40 | Outpatient (CLI) | payer MEDICARE, OTHER | END 2022-11-27 09:41 | disposition home or self-care (01) | LOC: LAB.S 09:40 | PROVIDERS: ATTEND Internal Medicine Cardiovascular Disease | DX: I48.0 Paroxysmal atrial fibrillation (principal); Z51.81 Encounter for therapeutic drug level monitoring; Z79.01 Long term (current) use of anticoagulants | CPT/HCPCS: 36416; 85610 ==

== ENCOUNTER 2023-01-15 12:49 | Outpatient (CLI) | payer MEDICARE, OTHER | END 2023-01-15 12:50 | disposition home or self-care (01) | LOC: LAB 12:49 | PROVIDERS: ATTEND Internal Medicine Cardiovascular Disease | DX: I48.0 Paroxysmal atrial fibrillation (principal); Z51.81 Encounter for therapeutic drug level monitoring; Z79.01 Long term (current) use of anticoagulants | CPT/HCPCS: 36416; 85610 ==

== ENCOUNTER 2023-01-22 12:16 | Outpatient (CLI) | payer MEDICARE, OTHER | END 2023-01-22 12:17 | disposition home or self-care (01) | LOC: LAB 12:16 | PROVIDERS: ATTEND Internal Medicine Cardiovascular Disease | DX: I48.0 Paroxysmal atrial fibrillation (principal); Z51.81 Encounter for therapeutic drug level monitoring; Z79.01 Long term (current) use of anticoagulants | CPT/HCPCS: 36416; 85610 ==

== ENCOUNTER 2023-01-27 08:00 | Outpatient (CLI) | payer MEDICARE, OTHER ==
--- NOTE | 2023-01-27 19:37 | XRAY Report ---
PROCEDURE: Chest 2 View X-Ray INDICATIONS: COUGH, CHEST CONGESTION TECHNIQUE: 2 views of the chest were acquired. COMPARISON: None. FINDINGS: Surgical changes and devices: None. Lungs and pleura: No pleural effusions or pneumothorax. Lungs are clear. Mediastinum: Mediastinal contours appear normal. Heart size is normal. Atherosclerotic vascular andres cification noted in the aortic arch. Bones and chest wall: No suspicious bony lesions. Overlying soft tissues appear unremarkable. IMPRESSION: No acute cardiopulmonary process. Reviewed by: Waldemar Wilson MD on 01/27/2023 6:35 PM AKDT Approved by: Waldemar Wilson MD on 01/27/2023 6:35 PM AKDT Station ID: [id number]
== END 2023-01-27 23:59 | disposition home or self-care (01) ==
LOC: DI.S 08:00
PROVIDERS: ATTEND Physician Assistant Medical
DX: R05.9 Cough, unspecified (principal); R09.89 Other specified symptoms and signs involving the circulatory and respiratory systems; H66.90 Otitis media, unspecified, unspecified ear; R11.2 Nausea with vomiting, unspecified; Z79.899 Other long term (current) drug therapy; Z93.1 Gastrostomy status

== ENCOUNTER 2023-01-31 11:27 | Outpatient (CLI) | payer MEDICARE, OTHER | END 2023-01-31 11:28 | disposition home or self-care (01) | LOC: LAB.S 11:27 | PROVIDERS: ATTEND Internal Medicine Cardiovascular Disease | DX: I48.0 Paroxysmal atrial fibrillation (principal); Z51.81 Encounter for therapeutic drug level monitoring; Z79.01 Long term (current) use of anticoagulants | CPT/HCPCS: 36416; 85610 ==

== ENCOUNTER 2023-02-05 12:07 | Outpatient (CLI) | payer MEDICARE, OTHER | END 2023-02-05 12:08 | disposition home or self-care (01) | LOC: LAB 12:07 | PROVIDERS: ATTEND Internal Medicine Cardiovascular Disease | DX: I48.0 Paroxysmal atrial fibrillation (principal); Z51.81 Encounter for therapeutic drug level monitoring; Z79.01 Long term (current) use of anticoagulants | CPT/HCPCS: 85610 ==

== ENCOUNTER 2023-02-16 11:32 | Outpatient (CLI) | payer MEDICARE, OTHER | END 2023-02-16 11:33 | disposition home or self-care (01) | LOC: LAB.S 11:32 | PROVIDERS: ATTEND Internal Medicine Cardiovascular Disease | DX: I48.0 Paroxysmal atrial fibrillation (principal); Z51.81 Encounter for therapeutic drug level monitoring; Z79.01 Long term (current) use of anticoagulants | CPT/HCPCS: 36416; 85610 ==

== ENCOUNTER 2023-02-19 14:25 | Outpatient (CLI) | payer MEDICARE, OTHER | END 2023-02-19 14:26 | disposition home or self-care (01) | LOC: LAB 14:25 | PROVIDERS: ATTEND Internal Medicine Cardiovascular Disease | DX: I48.0 Paroxysmal atrial fibrillation (principal); Z51.81 Encounter for therapeutic drug level monitoring; Z79.01 Long term (current) use of anticoagulants | CPT/HCPCS: 36416; 85610 ==

== ENCOUNTER 2023-02-23 14:38 | Outpatient (CLI) | payer MEDICARE, OTHER | END 2023-02-23 14:39 | disposition home or self-care (01) | LOC: LAB.S 14:38 | PROVIDERS: ATTEND Internal Medicine Cardiovascular Disease | DX: I48.0 Paroxysmal atrial fibrillation (principal); Z51.81 Encounter for therapeutic drug level monitoring; Z79.01 Long term (current) use of anticoagulants | CPT/HCPCS: 36416; 85610 ==

== ENCOUNTER 2023-02-28 12:30 | Outpatient (CLI) | payer MEDICARE, OTHER | END 2023-02-28 12:31 | disposition home or self-care (01) | LOC: LAB.S 12:30 | PROVIDERS: ATTEND Internal Medicine Cardiovascular Disease | DX: I48.0 Paroxysmal atrial fibrillation (principal); Z51.81 Encounter for therapeutic drug level monitoring; Z79.01 Long term (current) use of anticoagulants | CPT/HCPCS: 36416; 85610 ==

== ENCOUNTER 2023-03-16 08:12 | Outpatient (CLI) | payer MEDICARE, OTHER | END 2023-03-16 08:13 | disposition home or self-care (01) | LOC: LAB.S 08:12 | PROVIDERS: ATTEND Internal Medicine Cardiovascular Disease | DX: I48.0 Paroxysmal atrial fibrillation (principal); Z51.81 Encounter for therapeutic drug level monitoring; Z79.01 Long term (current) use of anticoagulants | CPT/HCPCS: 36416; 85610 ==

== ENCOUNTER 2023-03-26 13:37 | Outpatient (CLI) | payer MEDICARE, OTHER | END 2023-03-26 13:38 | disposition home or self-care (01) | LOC: LAB.S 13:37 | PROVIDERS: ATTEND Internal Medicine Cardiovascular Disease | DX: I48.0 Paroxysmal atrial fibrillation (principal); Z51.81 Encounter for therapeutic drug level monitoring; Z79.01 Long term (current) use of anticoagulants | CPT/HCPCS: 36416; 85610 ==

== ENCOUNTER 2023-04-02 10:25 | Outpatient (CLI) | payer MEDICARE, OTHER | END 2023-04-02 10:26 | disposition home or self-care (01) | LOC: LAB.S 10:25 | PROVIDERS: ATTEND Internal Medicine Cardiovascular Disease | DX: I48.0 Paroxysmal atrial fibrillation (principal); Z51.81 Encounter for therapeutic drug level monitoring; Z79.01 Long term (current) use of anticoagulants | CPT/HCPCS: 36416; 85610 ==

== ENCOUNTER 2023-04-10 09:08 | Outpatient (CLI) | payer MEDICARE, OTHER | END 2023-04-10 09:09 | disposition home or self-care (01) | LOC: LAB.S 09:08 | PROVIDERS: ATTEND Internal Medicine Cardiovascular Disease | DX: I48.0 Paroxysmal atrial fibrillation (principal); Z51.81 Encounter for therapeutic drug level monitoring; Z79.01 Long term (current) use of anticoagulants | CPT/HCPCS: 36416; 85610 ==

== ENCOUNTER 2023-04-16 12:25 | Outpatient (CLI) | payer MEDICARE, OTHER | END 2023-04-16 12:26 | disposition home or self-care (01) | LOC: LAB 12:25 | PROVIDERS: ATTEND Internal Medicine Cardiovascular Disease | DX: I48.0 Paroxysmal atrial fibrillation (principal); Z51.81 Encounter for therapeutic drug level monitoring; Z79.01 Long term (current) use of anticoagulants | CPT/HCPCS: 36416; 85610 ==

== ENCOUNTER 2023-04-19 12:58 | Outpatient (CLI) | payer MEDICARE, OTHER | END 2023-04-19 12:59 | disposition home or self-care (01) | LOC: LAB.S 12:58 | PROVIDERS: ATTEND Internal Medicine Cardiovascular Disease | DX: I48.0 Paroxysmal atrial fibrillation (principal); Z51.81 Encounter for therapeutic drug level monitoring; Z79.01 Long term (current) use of anticoagulants | CPT/HCPCS: 36416; 85610 ==

== ENCOUNTER 2023-05-18 08:06 | Outpatient (CLI) | payer MEDICARE, OTHER | END 2023-05-18 08:07 | disposition home or self-care (01) | LOC: LAB.S 08:06 | PROVIDERS: ATTEND Internal Medicine Cardiovascular Disease | DX: I48.0 Paroxysmal atrial fibrillation (principal); Z51.81 Encounter for therapeutic drug level monitoring; Z79.01 Long term (current) use of anticoagulants | CPT/HCPCS: 36416; 85610 ==

== ENCOUNTER 2023-06-15 08:25 | Outpatient (CLI) | payer MEDICARE, OTHER | END 2023-06-15 08:26 | disposition home or self-care (01) | LOC: LAB.S 08:25 | PROVIDERS: ATTEND Internal Medicine Cardiovascular Disease | DX: I48.0 Paroxysmal atrial fibrillation (principal); Z51.81 Encounter for therapeutic drug level monitoring; Z79.01 Long term (current) use of anticoagulants | CPT/HCPCS: 36416; 85610 ==

== ENCOUNTER 2023-07-09 08:37 | Outpatient (CLI) | payer MEDICARE, OTHER ==
[2023-07-09 16:30] LABS: ALBUMIN 4.3 g/dL (3.2-5.5); ALBUMIN/GLOBULIN RATIO 1.6 (1.0-2.2); ALKALINE PHOSPHATASE 73 IU/L (42-121); ALT ALANINE AMINOTRANSFERASE 27 IU/L (10-60); AST ASPARTATE AMINOTRANSFERASE 19 IU/L (10-42); BILIRUBIN,TOTAL 0.4 mg/dL (0.2-1.0); BUN - BLOOD UREA NITROGEN 16 mg/dL (6-20); CALCIUM 9.7 mg/dL (8.5-10.3); CARBON DIOXIDE - CO2 29 mmol/L (21-32); CHLORIDE 100 mmol/L (101-111); CHOL/HDL RATIO 4.5 (<5.0); CHOLESTEROL 139 mg/dL; GFR - MDRD 74 (>89); GLUCOSE 162 mg/dL (74-104); HDL CHOLESTEROL 31 mg/dL; LDL CHOLESTEROL,CALCULATED 37 mg/dL; LDL/HDL RATIO 1.2 (<3.6); POTASSIUM 4.1 mmol/L (3.5-4.5); SODIUM 134 mmol/L (135-145); TRIGLYCERIDES 356 mg/dL (48-352); VLDL CHOLESTEROL 71 mg/dL
[2023-07-09 17:11] LABS: CREATININE,URINE 171.1 mg/dL; MICROALBUM/CREATININE RATIO,UR 5.8 ug/mg (<30.0)
[2023-07-09 20:47] LABS: ESTIMATED AVERAGE GLUCOSE 194 mg/dL (70-100); HEMOGLOBIN A1c% 8.4 % (4.27-6.07)
== END 2023-07-09 08:38 | disposition home or self-care (01) ==
LOC: LAB.S 08:37
PROVIDERS: ATTEND Internal Medicine Cardiovascular Disease
DX: E11.8 Type 2 diabetes mellitus with unspecified complications (principal); E78.2 Mixed hyperlipidemia; I48.0 Paroxysmal atrial fibrillation; Z51.81 Encounter for therapeutic drug level monitoring; Z79.01 Long term (current) use of anticoagulants
CPT/HCPCS: 36415; 80053; 80061; 82043; 82570; 83036; 83721; 85610

== ENCOUNTER 2023-07-24 08:44 | Outpatient (CLI) | payer MEDICARE, OTHER | END 2023-07-24 08:45 | disposition home or self-care (01) | LOC: LAB.S 08:44 | PROVIDERS: ATTEND Internal Medicine Cardiovascular Disease | DX: I48.0 Paroxysmal atrial fibrillation (principal); Z51.81 Encounter for therapeutic drug level monitoring; Z79.01 Long term (current) use of anticoagulants | CPT/HCPCS: 36416; 85610 ==

== ENCOUNTER 2023-08-09 08:18 | Outpatient (CLI) | payer MEDICARE, OTHER | END 2023-08-09 08:19 | disposition home or self-care (01) | LOC: LAB.S 08:18 | PROVIDERS: ATTEND Internal Medicine Cardiovascular Disease | DX: Z51.81 Encounter for therapeutic drug level monitoring (principal); I48.0 Paroxysmal atrial fibrillation; Z79.01 Long term (current) use of anticoagulants | CPT/HCPCS: 36416; 85610 ==

== ENCOUNTER 2023-08-13 09:56 | Outpatient (CLI) | payer MEDICARE, OTHER | END 2023-08-13 09:57 | disposition home or self-care (01) | LOC: LAB.S 09:56 | PROVIDERS: ATTEND Internal Medicine Cardiovascular Disease | DX: I48.0 Paroxysmal atrial fibrillation (principal); Z51.81 Encounter for therapeutic drug level monitoring; Z79.01 Long term (current) use of anticoagulants | CPT/HCPCS: 36416; 85610 ==

== ENCOUNTER 2023-08-16 11:22 | Outpatient (CLI) | payer MEDICARE, OTHER | END 2023-08-16 11:23 | disposition home or self-care (01) | LOC: LAB.S 11:22 | PROVIDERS: ATTEND Internal Medicine Cardiovascular Disease | DX: I48.0 Paroxysmal atrial fibrillation (principal); Z51.81 Encounter for therapeutic drug level monitoring; Z79.01 Long term (current) use of anticoagulants | CPT/HCPCS: 36416; 85610 ==

== ENCOUNTER 2023-08-24 08:29 | Outpatient (CLI) | payer MEDICARE, OTHER | END 2023-08-24 08:30 | disposition home or self-care (01) | LOC: LAB.S 08:29 | PROVIDERS: ATTEND Internal Medicine Cardiovascular Disease | DX: I48.0 Paroxysmal atrial fibrillation (principal); Z51.81 Encounter for therapeutic drug level monitoring; Z79.01 Long term (current) use of anticoagulants | CPT/HCPCS: 36416; 85610 ==

== ENCOUNTER 2023-09-03 09:10 | Outpatient (CLI) | payer MEDICARE, OTHER | END 2023-09-03 09:11 | disposition home or self-care (01) | LOC: LAB.S 09:10 | PROVIDERS: ATTEND Internal Medicine Cardiovascular Disease | DX: I48.0 Paroxysmal atrial fibrillation (principal); Z51.81 Encounter for therapeutic drug level monitoring; Z79.01 Long term (current) use of anticoagulants | CPT/HCPCS: 36416; 85610 ==

== ENCOUNTER 2023-09-10 09:42 | Outpatient (CLI) | payer MEDICARE, OTHER | END 2023-09-10 09:43 | disposition home or self-care (01) | LOC: LAB.S 09:42 | PROVIDERS: ATTEND Internal Medicine Cardiovascular Disease | DX: I48.0 Paroxysmal atrial fibrillation (principal); Z51.81 Encounter for therapeutic drug level monitoring; Z79.01 Long term (current) use of anticoagulants | CPT/HCPCS: 36416; 85610 ==

== ENCOUNTER 2023-09-24 11:21 | Outpatient (CLI) | payer MEDICARE, OTHER | END 2023-09-24 11:22 | disposition home or self-care (01) | LOC: LAB.S 11:21 | PROVIDERS: ATTEND Internal Medicine Cardiovascular Disease | DX: I48.0 Paroxysmal atrial fibrillation (principal); Z51.81 Encounter for therapeutic drug level monitoring; Z79.01 Long term (current) use of anticoagulants | CPT/HCPCS: 36416; 85610 ==

== ENCOUNTER 2023-09-27 11:08 | Outpatient (CLI) | payer MEDICARE, OTHER | END 2023-09-27 11:09 | disposition home or self-care (01) | LOC: LAB.S 11:08 | PROVIDERS: ATTEND Internal Medicine Cardiovascular Disease | DX: I48.0 Paroxysmal atrial fibrillation (principal); Z51.81 Encounter for therapeutic drug level monitoring; Z79.01 Long term (current) use of anticoagulants | CPT/HCPCS: 36416; 85610 ==

== ENCOUNTER 2023-10-03 10:32 | Outpatient (CLI) | payer MEDICARE, OTHER ==
[2023-10-03 15:14] LABS: CALCIUM 10.6 mg/dL (8.5-10.3); POTASSIUM 4.1 mmol/L (3.5-4.5)
[2023-10-03 15:18] LABS: ESTIMATED AVERAGE GLUCOSE 151 mg/dL (70-100); HEMOGLOBIN A1c% 6.9 % (4.27-6.07)
[2023-10-03 15:21] LABS: CREATININE,URINE 97.4 mg/dL
[2023-10-03 15:46] LABS: MICROALBUMIN,URINE < 0.7 mg/dL
== END 2023-10-03 10:33 | disposition home or self-care (01) ==
LOC: LAB.S 10:32
PROVIDERS: ATTEND Registered Nurse
DX: E11.9 Type 2 diabetes mellitus without complications (principal); I48.0 Paroxysmal atrial fibrillation; Z51.81 Encounter for therapeutic drug level monitoring; Z79.01 Long term (current) use of anticoagulants
CPT/HCPCS: 36415; 80048; 82043; 82570; 83036; 85610

== ENCOUNTER 2023-11-09 09:26 | Outpatient (CLI) | payer MEDICARE, OTHER ==
--- NOTE | 2023-11-09 09:58 | CT Report ---
PROCEDURE: CT heart coronary calcium scoring without contrast TECHNIQUE: MDCT non-contrast cardiac gated images were obtained from the joredn through the inferior margin of the heart. Calcium score was obtained by post-processing with external software. Automated exposure control was used to reduce patient radiation dose. INDICATION: CAD screening, low or intermediate risk COMPARISON: Chest CT 11/17/2022. FINDINGS: Image quality: Excellent Agatston method: Total calcium score: 827 L main: 171 LAD: 564 LCX: 55 RCA: 37 Heart findings: Mitral annular calcifications: No significant calcifications. Aortic valve: No significant valvular calcifications. Chambers: No significant enlargement on this non-dynamic study. Pericardium: No effusion. Other findings (note the chest is incompletely imaged on this limited non-contrast study): Lungs and pleura: No pleural effusion. No actionable lung nodules. Perihilar reticulation on the right, presumably post radiation changes. Mediastinum: No pathologic lymphadenopathy. Patulous esophagus. Upper abdomen: Partially seen, unremarkable. Bones: No acute or suspicious abnormality. IMPRESSION: Coronary calcium scores as above. Incidentals: None significant. Coronary artery calcium scores have been identified as an independent risk factor for future acute co ronary syndromes and correlate with the quantity of coronary atherosclerotic plaque. However, they do not correlate directly with the degree of stenosis. A low score does not exclude a significant coron latasha artery stenosis. Risk of future coronary events should be assessed with individual patient risk factors and medical hi story. Consider correlation with risk percentiles using the HYMAN (Multi-Ethnic Study of Atheroscleros is) calculator. CAC-DRS Categories: A0: 0, very low risk, consider repeat coronary calcium study every 3-7 years for surveillance. A1: 1-99, mildly increased risk, consider moderate-intensity statin A2: 100-299: moderately increased risk, consider moderate to high-intensity statin + ASA 81mg A3: >300: moderately to severely increased risk, consider high-intensity statin + ASA 81mg Reviewed by: Norberto Santamaria MD on 11/09/2023 9:57 AM PDT Approved by: Norberto Santamaria MD on 11/09/2023 9:57 AM PDT Station ID: [id number]
== END 2023-11-09 09:27 | disposition home or self-care (01) ==
LOC: DI 09:26
PROVIDERS: ATTEND Registered Nurse
DX: E11.9 Type 2 diabetes mellitus without complications (principal); E78.1 Pure hyperglyceridemia; G47.39 Other sleep apnea; I10 Essential (primary) hypertension